=== PATIENT | male | born 1935 | race Caucasian/White ===

== ENCOUNTER → 2018-10-03 10:35 | Outpatient (CLI) | payer MEDICARE, BC ==
[2016-02-02 11:57] VITALS: BMI 25.1
[~2018-10-03 10:35] MED LIST: BAYER CHEWABLE81 MG PO; CARDIZEM30 MG PO; CEFTIN250 MG PO; COREG12.5 MG PO; COREG6.25 MG PO; CYMBALTA30 MG PO; GLUCOPHAGE500 MG PO; JANUVIA100 MG PO; LOW DOSE ASPIRI81 M1 PO; OCUVITE TABLET1 TA1 PO; UROXATRAL10 MG PO; XARELTO20 MG PO
== END | disposition home or self-care (01) ==
LOC: D.HCCARDIO 10:30
PROVIDERS: ATTEND Internal Medicine Cardiovascular Disease
DX: I10 Essential (primary) hypertension (principal)

== ENCOUNTER → 2018-10-16 10:15 | Outpatient (CLI) | payer MEDICARE, BC ==
[2016-02-02 11:57] VITALS: BMI 25.1
== END | disposition home or self-care (01) ==
LOC: D.HCCARDIO 10:15
PROVIDERS: ATTEND Internal Medicine Cardiovascular Disease
DX: I25.10 Atherosclerotic heart disease of native coronary artery without angina pectoris (principal)

== ENCOUNTER 2018-10-25 11:30 | Outpatient (CLI) | payer MEDICARE, BC ==
[~2018-10-25] VITALS: Ht 172.7 cm; Wt 74.1 kg
--- NOTE | ~2018-10-25 | HEMODYNAMI ---
PATIENT:KARO SPEAR JR MEDICAL RECORD: [id number] : 31 LOCATION:[facility] ADMISSION DATE: 10/25/18 Generatedon:10/25/201814:51 Patient name: KARO SPEAR Patient #: [id number] SSN: : 1935 Date of study: 10/25/2018 Page: Of Hemodynamic Procedure Report Patient Data Patient Demographics Procedure consent was obtained First Name: KARO Gender: Male Last Name: RAINER Suffix: [facility] Initial: Andrea : 1935 Patient #: [id number] Age: 83 year(s) Race: Additional ID: [id number] Contact details Address: [address] [place] [address] ROAD State: [place] City: [facility] Zip code: [address] Past Medical History Allergies: No known allergies Admission Admission Data Admission Date: 10/25/2018 Admission Time: 11:30 Admit Source: Other Height (in.): 68 BSA: 1.86 (m2) Height (cm.): 172.72 BMI: 24.48 (kg/m2) Weight (lbs.): 161 Weight (kg.): 73.03 Lab Results Lab Result Date: 10/25/2018 Lab Result Time: 12:10 Biochemistry Name Units Result Min Max BUN mg/dl 25 --(----)-* 7 18 Creatinine mg/dl 1.2 --(---*)-- 0.6 1.3 CBC Name Units Result Min Max Hematocrit % 38.6 *-(----)-- 42 54 Hemoglobin g/dl 12.2 *-(----)-- 13.5 17.5 Procedure Procedure Types Cath Procedure Diagnostic Procedure C [facility] w/Coronaries Procedure Description Procedure Date Procedure Date: 10/25/2018 Procedure Start Time: 14:32 Procedure End Time: 14:50 Procedure Staff Name Function Eze Mcleod MD Performing Physician Leslie Walker RT Monitor Red Hernadez RT Scrub David Lorigan RN Nurse Procedure Data Cath Procedure Fluoroscopy Diagnostic fluoroscopy Total fluoroscopy Time: 1.9 time: 1.9 min min Diagnostic fluoroscopy Total fluoroscopy dose: 452 dose: 452 mGy mGy Contrast Material Contrast Material Type Amount (ml) Isovue 300 78 Entry Location Entry Primary Successful Side Size Upsize Upsize Entry Closure Succes sful Closure Location (Fr) 1 (Fr) 2 (Fr) Remarks Device Remarks Femoral Right 5 Fr Exoseal artery Estimated blood loss: 5 ml Diagnostic catheters Device Type Used For End Catheter Placement MULTIPACK JL 4.0 5Fr Procedure catheter MULTIPACK 3DRC 5Fr Procedure catheter MULTIPACK Pigtail 5 Fr Procedure catheter Procedure Complications No complications Procedure Medications Medication Administration Route Dosage 0.9% NaCl I.V. 100 ml/hr Oxygen etCO2 Nasal cannula 2 l/min Heparin Flush Bag added to field 2 bags (1000units/500ml NS) Lidocaine 2% added to field 20 Versed I.V. 1 mg Fentanyl I.V. 50 mcg Versed I.V. 0.5 mg Fentanyl I.V. 25 mcg Hemodynamics Rest BSA: 1.86 (m2) HGB: 12.2 (g/dl) O2 Consumption: Estimated: 218.37 (ml/min) O2 Co nsumption indexed: Estimated:117.4 (ml/min/m) Heart Rate: 80 (bpm) Pressure Samples Time Site Value (mmHg) Purpose Heart Use Rate(bpm) 14:40 LV 137/2,17 Snapshot 78 14:40 AO 139/65(95) Pullback 77 14:40 LV 138/5,21 Pullback 77 Gradients Valve Time Site 1 Site 2 Mean SEP/DFP Peak To Heart Use (mmHg) (sec/min) Peak Rate (mmHg) (bpm) Aortic 14:40 LV AO 0 19 0 77 138/5,21 139/65(95) Calculations Valve P-P Mean Valve Index Valve Source Name Gradient Area Flow (cm2) Aortic 0 0 0 0 Snapshots Pre Cath Intra NCS Post Cath Vital Signs Time Heart Resp SPO2 etCO2 NIBP (mmHg) Rhythm Pain Sedation Rate (ipm) (%) (mmHg) Status Level (bpm) 14:15:24 79 22 98 36.9 155/93(133) NSR 0 (11) 10(A) , No pain 14:19:38 79 13 97 39.2 147/87(129) NSR 0 (11) 10(A) , No pain 14:23:50 74 12 96 0 142/86(122) NSR 0 (11) 10(A) , No pain 14:28:02 74 13 96 0 139/79(117) NSR 0 (11) 10(A) , No pain 14:32:14 77 12 96 36.2 139/78(111) NSR 0 (11) 10(A) , No pain 14:36:18 79 13 96 26.4 137/76(119) NSR 0 (11) 10(A) , No pain 14:40:28 77 11 96 0 131/77(111) NSR 0 (11) 9(A) , No pain 14:44:38 76 12 96 0 135/70(116) NSR 0 (11) 9(A) , No pain 14:48:47 69 12 96 0 137/81(110) NSR 0 (11) 9(A) , No pain Medications Time Medication Route Dose Verified Delivered Reason Notes Eff ectiveness by by 14:13:36 0.9% NaCl I.V. 100 David David Per ml/hr Jaimee Hermosillo physician RN RN 14:13:46 Oxygen etCO2 2 David David for low 02 Nasal l/min Lorigan Lorigan sats cannula RN RN 14:14:07 Heparin Flush added 2 David David used for Bag to bags Lorigan Lorigan procedure (1000units/500ml field RN RN NS) 14:14:26 Lidocaine 2% added 20ml David David for local to vial Lorigan Lorigan anesthetic field RN RN 14:32:52 Versed I.V. 1 mg David David for Lorigan Lorigan sedation RN RN 14:33:08 Fentanyl I.V. 50 David David for mcg Lorigan Lorigan sedation RN RN 14:38:53 Versed I.V. 0.5 David David for mg Lorigan Lorigan sedation RN RN 14:39:03 Fentanyl I.V. 25 David David for mcg Lorigan Lorigan sedation RN bait digger Log Time Note 13:56:28 Informed consent obtained and on chart 13:56:30 Admit Source: Other 13:56:41 Diagnostic Cath status Elective 13:56:42 David Hermosillo RN sent for patient. Start room use. 13:56:43 Time tracking: Regular hours (M-F 7:00 - 5:00) 13:56:46 Plan of Care:Hemodynamics will remain stable., Cardiac rhythm will remain stable., Comfort level will be maintained., Respiratory function will remain adequate., Patient/ family verbilizes understanding of procedure., Procedure tolerated without complication., Recovers from procedure without complications.. 13:58:37 H&P Date Dictated: 10/10/2018 Within 30 days and on chart., H&P Addendum completed by physician on day of procedure. (MUST COMPLETE FOR ALL OUTPATIENTS). 13:59:51 Lab Result : BUN 25 mg/dl 13:59:51 Lab Result : Hemoglobin 12.2 g/dl 13:59:51 Lab Result : Creatinine 1.2 mg/dl 13:59:51 Lab Result : Hematocrit 38.6 % 13:59:54 Lab results completed and on chart. 14:00:52 Patient received from Pre/Post Procedure Room to [facility] 2 Alert and oriented. Tansferred to table in Supine position. 14:00:53 Warm blankets applied, and ricco hugger turned on for patient comfort. 14:00:54 Correct patient and procedure confirmed by team. 14:00:56 ECG and BP/O2 sat monitors applied to patient. 14:13:36 0.9% NaCl 100 ml/hr I.V. was administered by David Hermosillo RN; Per physician; 14:13:46 Oxygen 2 l/min etCO2 Nasal cannula was administered by David Hermosillo RN; for low 02 sats; 14:14:07 Heparin Flush Bag (1000units/500ml NS) 2 bags added to field was administered by David Hermosillo RN; used for procedure; 14:14:18 Vital chart was started 14:14:19 Baseline sample Acquired. 14:14:22 Rhythm: sinus rhythm 14:14:23 Full Disclosure recording started 14:14:24 Pre-procedure instructions explained to patient. 14:14:24 Pre-op teaching completed and patient verbalized understanding. 14:14:25 Family in patients room. 14:14:26 Lidocaine 2% 20ml vial added to field was administered by David Hermosillo RN; for local anesthetic; 14:14:26 Patient NPO since Midnight. 14:14:33 Patient allergic to No known allergies 14:15:06 Is patient on blood thinner?No 14:15:07 Patient diabetic? Yes. 14:15:08 If diabetic: On Metformin? Yes 14:15:12 If on Metformin: Last Dose? 10/24/2018 14:15:17 Previous problem with sedation/anesthesia? No ? 14:15:18 Snore? Yes 14:15:32 Sleep apnea? No 14:15:33 Deviated septum? No 14:15:36 Opens mouth fully? Yes 14:15:36 Sticks out tongue? Yes 14:15:38 Airway obstruction? No ? 14:15:40 Dentures? No ? 14:15:43 Pre procedure: right dorsailis pedis pulse 2+ Normal; easily identifiable; not easily obliterated 14:15:50 Patient pain scale 0/10 ?. 14:16:54 IV patent on arrival in left forearm with 0.9% NaCl at O. 14:16:57 Alarms reviewed by R. N. 14:16:58 Sharps counted by scrub and verified by R.N. 14:17:02 Use device set Femoral Dx 14:17:03 ACIST Syringe (81609) opened to sterile field. 14:17:03 Bag Decanter (2002S) opened to sterile field. 14:17:04 ACIST Hand Control (11767) opened to sterile field. 14:17:05 ACIST Manifold (78783) opened to sterile field. 14:17:06 Tegaderm 4 x 4 (1626W) opened to sterile field. 14:17:07 Medline Cath Pack ([id number]) opened to sterile field. 14:17:07 DIAGNOSTIC WIRE .035 260cm J wire (797257) opened to sterile field. 14:17:08 DIAGNOSTIC Multipack 5Fr catheter set (QS0118) opened to sterile field. 14:17:09 SHEATH 5FR [place] (YFC725) opened to sterile field. 14:18:08 Patient Height : 68 inches 14:18:11 Patient Weight : 161 lbs 14:27:41 --------ALL STOP TIME OUT------ 14:27:42 Final Timeout: patient, procedure, and site verified with staff and physician. All members of the team are in agreement. 14:27:44 Right groin site verified by team. 14:27:58 Fire Safety Assessment: A--An alcohol-based skin anteseptic being used preoperatively., C--Open oxygen or nitrous oxide is being used., D--An ESU, laser, or fiber-optic light is being used. 14:28:02 Physical assessment completed. ASA score P 2 - A patient with mild systemic disease as per Eze Mcleod MD. 14:28:06 Sedation plan: IV Moderate Sedation Medication:Versed, Fentanyl 14:32:15 Procedure started. 14:32:23 Local anesthetic to right femoral artery with Lidocaine 2% by Eze Mcleod MD.INITIAL ACCESS ONLY 14:32:52 Versed 1 mg I.V. was administered by David Hermosillo RN; for sedation; 14:33:08 Fentanyl 50 mcg I.V. was administered by David Hermosillo RN; for sedation; 14:33:24 A 5 Fr sheath was inserted into the Right Femoral artery 14:34:00 A MULTIPACK JL 4.0 5Fr catheter was advanced over the wire and used for Procedure. 14:35:22 LCA angiography performed. 14:35:25 Catheter exchanged over wire. 14:35:58 A MULTIPACK 3DRC 5Fr catheter was advanced over the wire and used for Procedure. 14:37:43 RCA angiography performed. 14:37:45 Catheter removed. 14:38:49 A MULTIPACK Pigtail 5 Fr catheter was advanced over the wire and used for Procedure. 14:38:53 Versed 0.5 mg I.V. was administered by David Hermosillo RN; for sedation; 14:39:03 Fentanyl 25 mcg I.V. was administered by David Hermosillo RN; for sedation; 14:39:27 LV gram done using CHRISTENSEN 14:39:30 Injector settings: Ml/sec: 10, Volume: 20, 14:40:02 LV hemodynamics recorded. 14:40:17 EF : 25 % 14:40:30 Catheter removed. 14:43:38 EXOSEAL 5Fr (EX500) opened to sterile field. 14:45:06 Sheath removed intact; hemostasis achieved with Exoseal to the Right Femoral artery. 14:45:31 Procedure ended.(Physican Out) 14:46:57 Fluoroscopy time 01.90 minutes. 14:47:02 Flurop Dose total: 452 14:47:02 Fluoroscopy dose: 452 mGy 14:47:11 Contrast amount:Isovue 300 78ml. 14:47:13 Sharps counted by scrub and verified by R.N. 14:47:15 Post-op/insertion site Right Femoral artery dressed using a 4 x 4 and Tegaderm. 14:47:18 Post-procedure physical assessment completed. ASA score P 2 - A patient with mild systemic disease as per Eze Mcleod MD. 14:47:22 Post procedure rhythm: sinus rhythm 14:47:28 Estimated blood loss: 5 ml 14:47:29 Post procedure instruction explained to patient.Patient verbalizes understanding. 14:47:30 Patient needs reinforcement of post procedure teaching. 14:49:33 Procedure and supply charges have been captured, reviewed, submitted and are correct. 14:49:36 Procedure Complication : No complications 14:49:38 Vital chart was stopped 14:49:38 See physician's report for complete and final results. 14:49:48 Report given to Pre/Post Procedure Room. 14:49:51 Patient transfered to Pre/Post Procedure Room with Bed. 14:50:37 Procedure ended. 14:50:37 Full Disclosure recording stopped 14:50:41 End room use (Document Last) Device Usage Item Name Manufacture Quantity Catalog Hospital Part Current Minimal L ot# / Number Charge Number Stock Stock Serial# Code ACIST Acist 1 66113 693948 535800 435811 20 Syringe Medical (90759) Systems Inc Bag Microtek 1 2001S 388215 96365 815613 5 Decanter Medical Inc. () ACIST Hand Acist 1 45169 626832 317588 295771 5 Control Medical (68449) Systems Inc ACIST Acist 1 80658 133276 861694 954212 5 Manifold Medical (07028) Systems Inc Tegaderm 4 3M 1 1626W 013074 240802 624667 5 x 4 (1626W) Medline Medline 1 [id number] 876106 42796 845188 5 Cath Pack ([id number]) DIAGNOSTIC [facility] [place] 1 849384 868189 556715 118127 30 WIRE .035 260cm J wire (065659) DIAGNOSTIC Cardinal 1 QU8237 935302 53343 074528 30 Multipack Health 5Fr catheter set (JB8673) SHEATH 5FR Terumo 1 VXV785 576283 486239 991490 5 [place] (SBE724) MULTIPACK Cardinal 1 846530 5 JL 4.0 5Fr Health catheter MULTIPACK Cardinal 1 066817 5 3DRC 5Fr Health catheter MULTIPACK Cardinal 1 184974 5 Pigtail 5 Health Fr catheter EXOSEAL 5Fr Cardinal 1 EX500 317800 398059 869027 10 (EX500) Health Signature Audit [place] Stage Time Signature Unsigned Intra-Procedure 10/25/2018 Leslie Walker 2:51:14 PM RT(R) Signatures Monitor : Leslie Walker Signature : RT Date : Time : [address] [address]
[2018-10-25] MEDS ORDERED: PROSCAR5 MG PO (11:51)
[2018-10-25 12:09] VITALS: BP 150/86; Ht 172.7 cm; Wt 74.1 kg
[2018-10-25 12:25] LABS: BASOPHILS 0.4 % (0-2); EOSINOPHILS 5.4 % (0-7); HEMATOCRIT 38.6 % (42.0-54.0); HEMOGLOBIN 12.2 g/dL (13.5-17.5); IMMATURE GRANULOCYTES 0.3 % (0-5); LYMPHOCYTES 23.5 % (15-50); MCH 28.7 pg (26.0-34.0); MCHC 31.6 g/dL (31.0-37.0); MCV 90.8 fL (80.0-100.0); MEAN PLATELET VOLUME 10.7 fL (7.4-10.4); MONOCYTES 11.6 % (2-11); NEUTROPHILS 58.8 % (40-80); PLATELET COUNT 322 10x3/uL (130-400); RBC 4.25 10x6/uL (4.20-6.10); RDW 14.8 % (11.5-14.5); WBC 7.9 10x3/uL (4.8-10.8)
[2018-10-25 12:37] LABS: ANION GAP 12.3 mmol/L (8-16); CALCIUM 8.4 mg/dL (8.5-10.1); CARBON DIOXIDE 29.7 mmol/L (21.0-32.0); CREATININE - SERUM 1.2 mg/dL (0.6-1.3)
--- NOTE | 2018-10-25 15:18 | NUR ---
RIGHT GROIN DRESSING C/D/I. NO S/S OF HEMATOMA NOTED. PT DENIES PAIN. VSS. RIGHT PEDAL PULSE PALPABLE. FAMILY AT BEDSIDE.
--- NOTE | 2018-10-25 15:50 | NUR ---
RIGHT GROIN DRESSING C/D/I. VSS. NO S/S OF HEMATOMA NOTED. FAMILY AT BEDSIDE.
--- NOTE | 2018-10-25 15:55 | NUR ---
DR. BAGLEY ROUNDED AND SPOKE WITH PT AND PT'S FAMILY.
--- NOTE | 2018-10-25 16:00 | NUR ---
HEAD OF BED INC TO 30 DEGREES. TOLERATED WELL. SET UP WITH SANDWICH TRAY AND DRINK. DENIES NAUSEA.
--- NOTE | 2018-10-25 16:24 | NUR ---
PT VOIDED APPROX 450CC OF CLEAR YELLOW URINE. LEFT FA PIV D/C'D WITH CATH TIP INTACT. PT TOLERATED WELL. DISCUSSED DISCHARGE INSTRUCTIONS WITH PT AND PT'S FAMILY. THEY VOICED UNDERSTANDING. PT INSTRUCTED TO GET DRESSED. PT'S AT BEDSIDE FOR ASSISTANCE. RIGHT GROIN DRESSING SOFT TO TOUCH. NO S/S OF HEMATOMA NOTED.
--- NOTE | 2018-10-25 16:40 | NUR ---
PT DRESSED. RIGHT GROIN DRESSING C/D/I. PT TAKEN OUT TO VEHICLE BY WHEELCHAIR. NO S/S OF DISTRESS NOTED. ALL BELONGINGS AND PAPERWORK IN HAND.
== END 2018-10-25 16:40 | disposition home or self-care (01) ==
LOC: D.CATH 11:30
PROVIDERS: ATTEND Internal Medicine Cardiovascular Disease
DX: I25.119 Atherosclerotic heart disease of native coronary artery with unspecified angina pectoris (principal); R94.39 Abnormal result of other cardiovascular function study; Z01.812 Encounter for preprocedural laboratory examination

== ENCOUNTER → 2018-11-27 17:00 | Outpatient (CLI) | payer MEDICARE, BC ==
[2018-10-25 12:09] VITALS: BMI 24.8
[~2018-11-27 17:00] MED LIST changes: +PROSCAR5 MG PO
[2018-11-27 20:29] LABS: CALC OSMOLALITY 286 mosm/kg (275-300); CARBON DIOXIDE 30.3 mmol/L (21.0-32.0); CHLORIDE - SERUM 104 mmol/L (98-107); CREATININE - SERUM 0.9 mg/dL (0.6-1.3); GLUCOSE 132 mg/dL (74-106); POTASSIUM - SERUM 4.8 mmol/L (3.5-5.1); SODIUM 142 mmol/L (136-145); UREA NITROGEN 17 mg/dL (7-18); eGFR NON AFRICAN AMERICAN 85 mL/min (90-120)
== END | disposition home or self-care (01) ==
LOC: D.LABREF 17:00
PROVIDERS: ATTEND Internal Medicine Cardiovascular Disease
DX: I10 Essential (primary) hypertension (principal)

== ENCOUNTER 2019-01-26 10:50 | Emergency (ER) | payer MEDICARE, BC ==
[2019-01-26 11:00] VITALS: BMI 24.3
[2019-01-26] MEDS ORDERED: PRAVACHOL20 MG PO (11:02)
[2019-01-26] MEDS ORDERED: ENTRESTO 24 MG1 EACH PO (11:02)
[2019-01-26 11:20] LABS: BASOPHILS 0.3 % (0-2); HEMATOCRIT 33.2 % (42.0-54.0); HEMOGLOBIN 10.8 g/dL (13.5-17.5); IMMATURE GRANULOCYTES 0.1 % (0-5); LYMPHOCYTES 11.8 % (15-50); MCH 29.9 pg (26.0-34.0); MCHC 32.5 g/dL (31.0-37.0); MEAN PLATELET VOLUME 10.6 fL (7.4-10.4); NEUTROPHILS 78.8 % (40-80); PLATELET COUNT 319 10x3/uL (130-400); RBC 3.61 10x6/uL (4.20-6.10); RDW 16.4 % (11.5-14.5); WBC 7.3 10x3/uL (4.8-10.8)
[2019-01-26 11:31] LABS: APTT 21.8 SECONDS (22.8-39.4); INR 1.33 (0.85-1.17); PROTIME 15.9 SECONDS (11.6-15.0)
[2019-01-26 11:36] LABS: ALBUMIN 3.1 g/dL (3.4-5.0); ALKALINE PHOSPHATASE 138 U/L (46-116); ALT (SGPT) 113 U/L (10-68); BILIRUBIN - TOTAL 0.74 mg/dL (0.2-1.3); CALC OSMOLALITY 289 mosm/kg (275-300); CALCIUM 7.9 mg/dL (8.5-10.1); CARBON DIOXIDE 21.7 mmol/L (21.0-32.0); CHLORIDE - SERUM 105 mmol/L (98-107); CREATININE - SERUM 1.3 mg/dL (0.6-1.3); GLUCOSE 202 mg/dL (74-106); PROTEIN - SERUM 6.5 g/dL (6.4-8.2); SODIUM 139 mmol/L (136-145); UREA NITROGEN 29 mg/dL (7-18); eGFR NON AFRICAN AMERICAN 56 mL/min (90-120)
[2019-01-26 12:02] LABS: CKMB 1.7 U/L (0.0-3.6); CREATINE KINASE 110 UL (21-232); MAGNESIUM - SERUM 1.5 mg/dL (1.8-2.4); PRO BNP 21525 pg/mL (0-450); TROPONIN-I 0.026 ng/mL (0.000-0.060)
[2019-01-26] MEDS ORDERED: LASIX40 MG PO (14:35)
[2019-01-26] MEDS ORDERED: K-DUR20 MEQ PO (14:35)
[2019-01-26 15:45] VITALS: BP 154/70
== END 2019-01-26 15:46 | disposition home or self-care (01) ==
LOC: D.ER 10:50
PROVIDERS: Emergency Medicine
DX: R06.00 Dyspnea, unspecified (principal); R79.89 Other specified abnormal findings of blood chemistry; I10 Essential (primary) hypertension; E11.9 Type 2 diabetes mellitus without complications

== ENCOUNTER 2019-02-18 12:52 | Inpatient (IN) | payer MEDICARE, BC ==
[~2019-02-18] VITALS: Ht 172.7 cm; Wt 71.7 kg
[~2019-02-18 12:52] MED LIST changes: +ENTRESTO 24 MG1 EACH PO; +K-DUR20 MEQ PO; +LASIX40 MG PO; +PRAVACHOL20 MG PO
[2019-02-18 14:21] LABS: BASOPHILS 0.1 % (0-2); EOSINOPHILS 0 % (0-7); HEMATOCRIT 37.3 % (42.0-54.0); HEMOGLOBIN 12.4 g/dL (13.5-17.5); IMMATURE GRANULOCYTES 0.2 % (0-5); LYMPHOCYTES 9.6 % (15-50); MCH 30.2 pg (26.0-34.0); MCHC 33.2 g/dL (31.0-37.0); MCV 90.8 fL (80.0-100.0); MONOCYTES 8.4 % (2-11); NEUTROPHILS 81.7 % (40-80); PLATELET COUNT 320 10x3/uL (130-400); RBC 4.11 10x6/uL (4.20-6.10); RDW 16.6 % (11.5-14.5); WBC 10.2 10x3/uL (4.8-10.8)
--- NOTE | 2019-02-18 14:40 | NUR ---
URINE SENT TO LAB.
[2019-02-18 14:50] LABS: APPEARANCE CLEAR (CLEAR); BILIRUBIN NEGATIVE (NEGATIVE); COLOR YELLOW (YELLOW); GLUCOSE NEGATIVE (NEGATIVE); KETONE NEGATIVE (NEGATIVE); NITRITE NEGATIVE (NEGATIVE); PROTEIN TRACE mg/dL (NEGATIVE); SPECIFIC GRAVITY 1.015 (1.005-1.020); UROBILINOGEN NORMAL (NORMAL)
[2019-02-18 14:50] LABS: ALBUMIN 3.1 g/dL (3.4-5.0); ANION GAP 19.1 mmol/L (8-16); BILIRUBIN - TOTAL 1.26 mg/dL (0.2-1.3); CALCIUM 8.5 mg/dL (8.5-10.1); CARBON DIOXIDE 21.7 mmol/L (21.0-32.0); POTASSIUM - SERUM 5.8 mmol/L (3.5-5.1)
[2019-02-18 14:59] LABS: T4 THYROXINE 4.6 ug/dL (4.7-13.3); THYROID STIMULATING HORMONE 3.34 uIU/mL (0.36-3.74)
--- NOTE | 2019-02-18 17:08 | NUR ---
RECIEVED REPORT FROM GERMAIN RODRÍGUEZ IN THE ER.
[2019-02-18] MEDS ORDERED: METFORMIN HCL500 M1 PO (17:52)
[2019-02-18] MEDS ORDERED: GLUCOTROL 5 MG T5 MG PO (17:55)
[2019-02-18 17:56] VITALS: BP 116/79; BMI 24.0
[2019-02-18 20:00] VITALS: BP 103/61
--- NOTE | 2019-02-18 20:29 | NUR ---
EVENING ROUNDS COMPLETED. REPORT RECEIVED. PT SITTING UP IN BED WITH EYES OPEN, RR EVEN AND UNLABORED. NO S/S OF DISTRESS NOTED. BED IN LOW POSITION. LFA INFUSING NS ORDERED. 87 SINUS ON TELEMETRY. INTRODUCED SELF TO PT. PT DENIES FURTHER NEEDS AT THIS TIME. CALL LIGHT IN REACH. WILL CTM.
[2019-02-19 00:18] VITALS: BP 112/75
--- NOTE | 2019-02-19 01:05 | NUR ---
PT LYING ON RIGHT SIDE IN BED WITH EYES CLOSED, RR EVEN AND UNLABORED. 91 SINUS ON TELEMETRY. BED IN LOW POSITION. CALL LIGHT IN REACH. WILL CTM.
--- NOTE | 2019-02-19 03:16 | NUR ---
SCD'S APPLIED TO PT BILATERAL LOWER EXTREMITIES. PROVIDED PT EDUCATION ON PURPOSE AND APPLICATION OF SCD'S.
[2019-02-19 04:00] VITALS: BP 129/84
--- NOTE | 2019-02-19 04:35 | NUR ---
I have reviewed this patient and I concur with the Shift Assessment completed by the Licensed Practical Nurse today this shift.
[2019-02-19 05:56] LABS: BASOPHILS 0.1 % (0-2); EOSINOPHILS 0.1 % (0-7); HEMATOCRIT 36.6 % (42.0-54.0); IMMATURE GRANULOCYTES 0.3 % (0-5); LYMPHOCYTES 11.1 % (15-50); MCH 29.6 pg (26.0-34.0); MCHC 32.8 g/dL (31.0-37.0); MCV 90.4 fL (80.0-100.0); NEUTROPHILS 80.4 % (40-80); PLATELET COUNT 345 10x3/uL (130-400); RBC 4.05 10x6/uL (4.20-6.10); RDW 16.3 % (11.5-14.5); WBC 9.7 10x3/uL (4.8-10.8)
[2019-02-19 06:12] LABS: ANION GAP 20.5 mmol/L (8-16); CALCIUM 8.3 mg/dL (8.5-10.1); CARBON DIOXIDE 18.7 mmol/L (21.0-32.0); PHOSPHOROUS 5.1 mg/dL (2.5-4.9); POTASSIUM - SERUM 5.2 mmol/L (3.5-5.1)
--- NOTE | 2019-02-19 07:42 | NUR ---
PT RESTING IN BED. NO SIGNS OF DISTRESS. IV TO LEFT FORARM PATENT NO REDNESS OR TENDERNESS. ON TELEMETRY 95 SR WITH BBB. DENIES ANY FUTHER NEED AT THIS TIME. CALL LIGHT IN REACH. BED LOW POSITION. AT BEDSIDE.
[2019-02-19 08:28] VITALS: BP 125/84
--- NOTE | 2019-02-19 08:37 | HP ---
PATIENT: KARO SPEAR JR MEDICAL RECORD: [id number] ACCOUNT: [id number] LOCATION:[address] : [birth year] ADMISSION DATE: 02/18/19 PCP: ANDREW HARDEN MD HISTORY AND PHYSICAL EXAMINATION DATE OF ADMISSION: 02/18/2019. CHIEF COMPLAINT: Increased weakness and decreased appetite. HISTORY OF PRESENT ILLNESS: This is an 83-year-old white male who is followed by Dr. Harden. He has been having the above symptoms for the last few weeks to maybe a couple of months. He had an angiogram done on 10/25/2018 that showed moderate coronary artery disease that really had not changed much from previous angiogram. The ejection fraction was found to be low at 20% to 25%. The patient's states that he was started on Entresto, she thinks in November of this year. The patient denies chest pain, shortness of breath, nausea, vomiting, diarrhea, fever, or chills. He was in the Emergency Department in early January, and he was reportedly started on Lasix or increased Lasix then. Here in the Emergency Room today, his urinalysis was normal. LABORATORY DATA: His CBC showed mild anemia with hemoglobin 12.4. Basic metabolic panel showed a potassium level of 5.8, BUN of 54, creatinine of 2.0, alkaline phosphatase was high at 286 (the patient had a basic metabolic panel on 10/27/[address] Harden's office showed a potassium of 4.2, BUN of 20, and creatinine 1.19. Another basic metabolic panel done by Dr. Harden on 02/06/2019 showed a potassium level of 3.9, BUN of 40, and a creatinine of 1.50. His alkaline phosphatase then was 269, ALT was elevated at 169, and AST was mildly elevated at 52. The patient was admitted. PAST MEDICAL HISTORY: He has chronic congestive heart failure, macrocytic anemia, coronary artery disease, paroxysmal atrial fibrillation, BPH, diabetes, hyperlipidemia, hypertension, hypothyroidism, reflux, sleep apnea, and arthritis. PAST SURGICAL HISTORY: He has had coronary stents. ALLERGIES: REPORTEDLY TO SULFA AND ELISE INHIBITORS. HOME MEDICATIONS: He has been on Lasix 40 mg a day, potassium 20 mEq a day started 3-4 weeks ago, he has been on Carvedilol 12.5 mg twice a day, Megace 1 teaspoon twice a day, Januvia 100 mg once a day, metformin 500 mg twice a day, glipizide 5 mg 1/2 once a day. He gets regular B12 injections. He was started on Entresto 24-26 twice a day, pravastatin 20 mg a day, finasteride 5 mg a day, and duloxetine 30 mg a day. HABITS: Smokes cigars. No alcohol or drugs. SOCIAL HISTORY: He is . He is retired. FAMILY HISTORY: Noncontributory. REVIEW OF SYSTEMS: GENERAL: thinks he has lost a few pounds over the last several weeks to months. HEENT: No particular sinus or allergy problems. HISTORY AND PHYSICAL [id number] KARO SPEAR JR RESPIRATORY: No known diagnosis of COPD or emphysema. CARDIAC: See above history, followed by Dr. Mcleod. GASTROINTESTINAL: No significant diarrhea, constipation, or heartburn. GENITOURINARY: He has a history of BPH. MUSCULOSKELETAL: He has arthritic aches and pains. NEUROLOGIC: No seizures or migraine headaches. PSYCHIATRIC: He has had some depression. PHYSICAL EXAMINATION: VITAL SIGNS: Temperature 97.7, pulse 93, respirations 18, blood pressure 116/79, and O2 sat 95%. GENERAL: He is awake and alert. He does not appear in distress, and is lying on his right side. SKIN: Warm and dry. HEENT: Grossly within normal limits. NECK: Supple. No JVD or bruit. HEART: Regular rate and rhythm without murmur. LUNGS: Fairly clear. ABDOMEN: Soft, flat, nontender. EXTREMITIES: He has 2+ pitting edema in the lower extremities bilaterally. LABORATORY DATA: Urinalysis is normal. CBC with white count of 10,200, hemoglobin 12.4, and hematocrit 37.3. Sodium 132, potassium 5.8, chloride 97, CO2 21.7, BUN 54, creatinine 2.0, glucose 212, calcium 8.5, and total bilirubin 1.26. AST normal at 29, ALT 46, alkaline phosphatase high at 286, albumin 3.1. TSH 3.34. T4 level was 4.6. ASSESSMENT: 1. Generalized weakness, loss of appetite, and acute renal failure. 2. History of CHF with ejection fraction of 20% to 25%. 3. Diabetes. 4. Heart disease. 5. Hyperkalemia. PLAN: We will order a chest x-ray. We will check a proBNP. He was given a 500-mL normal saline bolus in the ER. He was given calcium gluconate, insulin, and D50 to try to get his potassium down. We will consult Dr. Mcleod in s morning. We will hold his Lasix and obviously the potassium. Hold metformin and Januvia as his kidney function is too high for him. His Entresto could be causing some of these side effects, including renal impairment and hyperkalemia. Other tests or procedures as warranted. TRANSINT:[id number] Voice Confirmation ID: [id number] DOCUMENT ID: [id number] ALBERTO OROZCO MD at 0837 CC: [id number] DICTATION DATE: 02/18/192100 GLASS FINISHER: 02/18/192217 ADM IN [facility] [address] [place] [address]
[2019-02-19 12:58] VITALS: BP 120/87
--- NOTE | 2019-02-19 13:22 | NUR ---
I have reviewed this patient and I concur with the Shift Assessment completed by the Licensed Practical Nurse today this shift.
[2019-02-19 13:35] VITALS: Ht 172.7 cm; Wt 71.7 kg
--- NOTE | 2019-02-19 15:19 | MORECARE ---
CASE MANAGEMENT DISCHARGE SUMMARY PATIENT: MODESTO SPEAR UNIT: [id number] ADM DATE: 02/18/19 AGE: 83 : 33 SEX: M ROOM/BED: D.2130 AUTHOR: LETICIA,DOC PHYSICIAN: REFERRING PHYSICIAN: ALBERTO OROZCO MD DATE OF SERVICE: 02/19/19 Discharge Plan Patient Name: MODESTO SPEAR Facility: [facility]:[place] : 1935 Planned Disposition: Home Anticipated Discharge Date: Discharge Date: Expected LOS: Initial Reviewer: [email or web address] Initial Review Date: 02/19/2019 Generated: 02/19/19 4:19 pm Comments DCP- Discharge Planning Updated by [email or web address]: Modetso Monk on 02/19/19 2:[address] Patient Name: MODESTO SPEAR Admission Status: ER Accout number: [id number] Admission Date: 02-18-2019 : 1935 Admission Diagnosis: Attending: ALBERTO OROZCO Current LOS: 1 Anticipated DC Date: Planned Disposition: Home Primary Insurance: MEDICARE A & B Discharge Planning Comments: CM RECEIVED ORDER FOR REHAB OR HOME HEALTH. CM MET WITH PT IN ROOM TO DISCUSS DISCHARGE PLANNING AND NEEDS. PT REPORTS LIVING AT HOME INDEPENDENTLY WITH HIS . PT HAS GLUCOMETER AND GETS SUPPLIES FROM [employer]; PT HAS NO MEDICAL EQUIPMENT PROVIDER PREFERENCE AND NO OUTSIDE SERVICES ASSISTING IN THE HOME. CM DISCUSSED AVAILABILITY OF HOME HEALTH, REHAB SERVICES AND MEDICAL EQUIPMENT. PT DENIES DISCHARGE NEEDS, AND THINKS HE WILL BE GOING HOME AT DISCHARGE. PT REPORTS HIS WILL PICK HIM UP FOR DISCHARGE HOME. IMPORTANT MESSAGE FROM MEDICARE PROVIDED AND EXPLAINED. CM SPOKE TO BEDSIDE NURSE AND OBTAINED ORDER FOR PHYSICAL THERAPY EVALUATION. PT STATES PLAN TO GO HOME AND DENIES CURRENT DISCHARGE NEEDS, BUT PLANS TO SPEAK TO HIS TODAYREGARDING DISCHARGE NEEDS. CM WAITING PT TO DISCUSS DISCHARGE PLAN WITH AND INFORM PULLING UNIT OPERATOR. CM LEFT CM CONTACT INFORMATION WITH PT IN ROOM. Supervisor Of Operations: Modesto Monk DCPIA - Discharge Planning Initial Assessment Updated by [email or web address]: Modesto Monk on 02/19/19 3:13 pm * Is the patient Alert and Oriented? Yes * How many steps to enter\exit or inside your home? 3-O / 3-I * PCP DR. [place] CITIZEN * [facility] * Preadmission Environment Home with Family * ADLs Independent * Equipment Glucometer * Other Equipment NO MEDICAL EQUIPMENT PROVIDER PREFERENCE * List name and contact numbers for known caregivers / representatives who currently or will assist patient after discharge: STEFANIE SPEAR, SPOUSE, * Verbal permission to speak to the caregivers and representatives has been obtained from the patient. N/A * Community resources currently utilized None * Please name any agencies selected above. NONE * Additional services required to return to the preadmission environment? No * Can the patient safely return to the preadmission environment? Yes * Has this patient been hospitalized within the prior 30 days at any hospital? No Coverage Notice Reviewer: [email or web address] Nancy Monk Notice Issued Date-Time: 02/19/2019 15:00 Notice Type: IM Discharge Notice Notice Delivered To: Patient Relationship to Patient: Hat Former Name: Delivery Method: HAND - Hand Delivered Lynn Days: Prior Verbal Notification: Recipient Understood Notice: Yes Recipient Signature: Yes Med Rec Note Co-signed by Attending: Coverage Notice Comment: Patient Name: MODESTO SPEAR Page [id number] at 1519 All edits/amendments must be made on the electronic document DICTATION DATE: 02/19/191518 LITHOGRAPHIC PHOTOGRAPHER APPRENTICE: ENRIQUE 02/19/191518 RPT#: [id number] DC DATE: STATUS: ADM IN [facility] [address] [place] [address] END OF REPORT
[2019-02-19 17:28] VITALS: BP 136/96
--- NOTE | 2019-02-19 17:31 | HP ---
PATIENT: KARO SPEAR JR MEDICAL RECORD: [id number] ACCOUNT: [id number] LOCATION:[address] : [birth year] ADMISSION DATE: 02/18/19 PCP: ANDREW KNOWLES MD HISTORY AND PHYSICAL EXAMINATION REASON FOR ADMISSION: Cachexia and fatigue. HISTORY OF PRESENT ILLNESS: The patient is an 83-year-old male with history of type 2 diabetes mellitus, ischemic cardiomyopathy, and coronary artery disease. Cardiac catheterization in October of this year showed stable disease. His ejection fraction, however, dropped to 25% to 30%. He was placed on Entresto, and he has felt more fatigued since he has had poor appetite. He has had outpatient workup in the clinic 2 weeks ago, was found to be hypokalemia with potassium of 3.4 and was started on oral potassium. He was started on Lasix because of pleural effusion, mild CHF symptoms earlier in the ER a few months ago. His said he just is weak and tired only. He denies depression. He denies shortness of breath or chest pain. He also has history of paroxysmal atrial fibrillation, remains in sinus rhythm currently. His cath on October 25 of this year showed heavily calcified LAD with proximal stents that were patent, moderate disease involving the bifurcation of LAD and diagonal, unchanged from prior. Circumflex showed 80% stenosis at the origin. RCA was large in caliber, PDA was 67% stenosis. EF was 20% to 25%. PAST MEDICAL HISTORY: AODM, BPH, paroxysmal atrial fibrillation, essential hypertension, ischemic congestive cardiomyopathy, hyperlipidemia, osteoarthritis, remote history of pneumonia, obstructive sleep apnea, pernicious anemia, CAD, BPH, diabetic neuropathy, history of herpes zoster, hypothyroidism, and mitral valve regurgitation. PAST SURGICAL HISTORY: Cardiac catheterization as mentioned times 2 with PTCA. His stent was placed 11/14/2014 LAD. ALLERGIES: None mentioned. HOME MEDICATIONS: Entresto 24 mg/26 mg 1 b.i.d., Metformin ER 500 mg b.i.d., potassium ER 20 mEq a day, furosemide 40 a day, glipizide 5 mg 1/2 tab daily, finasteride 5 mg a day, Coreg 12.5 mg b.i.d., Januvia 100 mg a day, duloxetine 30 mg SR daily, Nasonex nasal spray daily, pravastatin 20 mg at bedtime, and aspirin 81 mg daily. FAMILY HISTORY: Remote smoker, nondrinker. He is . REVIEW OF SYSTEMS: GENERAL: He had a 10-pound weight loss over the last 2 years, 5 pounds in the last 6 months, poor appetite. No fever. HEENT: No recent new visual change, sinus congestion, or sore throat. RESPIRATORY: Mild exertional dyspnea. No cough and no hemoptysis. CARDIAC: No exertional chest pain or claudication. He has had mild peripheral edema. He denies PND. Denies chest pain. GASTROINTESTINAL: She has no recent nausea. No change in stools or blood per rectum. Recent gallbladder ultrasound showed distended gallbladder without stones, elevated liver functions. No history of hepatitis. GENITOURINARY: Has nocturia 2-3 times nightly with slow voiding stream. ENDOCRINE: Denies polyuria, polydipsia, heat or cold intolerance. NEUROLOGIC: No history of stroke, TIA, or vascular headaches. HISTORY AND PHYSICAL [id number] KARO SPEAR JR INTEGUMENT: No rash or itching. PSYCHIATRIC: Denies depressed mood, although I suspect he is somewhat depressed due to his current cardiac issues. PHYSICAL EXAMINATION: VITAL SIGNS: Pulse 86 and regular, respirations are 18, blood pressure 103/61 with a sat of 95% on room air. GENERAL: The patient is alert and oriented, but appears weak. His eyes are clear. Oropharynx shows dry mucous membranes. NECK: Supple. CHEST: Decreased breath sounds at right base. HEART: Regular rate without murmur. ABDOMEN: Soft, nontender. GENITOURINARY: Unremarkable. EXTREMITIES: He has 2+ pretibial edema of the knees bilaterally. No cyanosis. NEUROLOGICAL: Oriented to person, place, and time. Cranial nerves intact. Gait is normal. Memory appears intact. ADMISSION LABORATORY DATA: Shows H and H of 12.4 and 37, reflecting his chronic anemia from B12 deficiency. Potassium was 5.8 on admission, sodium 132, CO2 of 21.7, BUN 34, creatinine 2.0, and alkaline phosphatase of 285. ProBNP of 32,683. Chest x-ray is pending. EKG reveals incomplete left bundle branch block, T-wave inversion laterally and old prolonged QT. ASSESSMENT: 1. Prerenal azotemia. 2. Hyperkalemia from medications and poor oral intake. 3. Ischemic cardiomyopathy with congestive heart failure. 4. Diabetes mellitus. 5. Cardiac cachexia. 6. Pernicious anemia. 7. Hypertension. 8. Hyperlipidemia. 9. Paroxysmal atrial fibrillation. 10. Coronary artery disease. 11. GERD. 12. Dyslipidemia. 13. Diabetic neuropathy. 14. Hypothyroidism. PLAN: The patient admitted, was treated in the ER emergently for hyperkalemia and placed on oracle database analyst. He was restarted on Megace and tolerating that in the office. His states that she cannot get him to eat and he is extremely weak. I discussed in depth how week his heart is currently most likely has cardiac cachexia. Cardiology was consulted concerning any change in medicines. We will discontinue metformin due to his creatinine elevation, lower his Januvia to 50 mg daily and use sliding scale insulin. TRANSINT:[id number] Voice Confirmation ID: [id number] DOCUMENT ID: [id number] HISTORY AND PHYSICAL [id number] KARO SPEAR JR, TIMOTHY MD at 1731 CC: [id number] DICTATION DATE: 02/19/19726 PARTY BUS DRIVER: 02/19/19 0820 ADM IN [facility] [address] [place] [address]
--- NOTE | 2019-02-19 19:25 | NUR ---
RESUMING PATIENT CARE. PATIENT IS ALERT AND ORIENTED. PATIENT SITTING UP ON SIDE OF BED. IS PUTTING LOTION ON HIS BACK. STATES THAT PATIENT HAD A RASH ON HIS BACK AND NOW THAT THE RASH IS GONE. PATIENT HAS BAD DRY SKIN. RESPIRATIONS ARE EVEN AND UNLABORED. NO S/S OF DISTRESS. NO C/O PAIN. CALL LIGHT WITHIN REACH. WILL CPOC.
[2019-02-19 20:43] VITALS: BP 132/87
[2019-02-20 00:04] VITALS: BP 123/78
[2019-02-20 04:12] VITALS: BP 114/57
[2019-02-20 06:23] LABS: BASOPHILS 0.1 % (0-2); EOSINOPHILS 0 % (0-7); HEMATOCRIT 37.8 % (42.0-54.0); HEMOGLOBIN 12.5 g/dL (13.5-17.5); IMMATURE GRANULOCYTES 0.2 % (0-5); LYMPHOCYTES 12.9 % (15-50); MCHC 33.1 g/dL (31.0-37.0); MCV 90.9 fL (80.0-100.0); MEAN PLATELET VOLUME 11.2 fL (7.4-10.4); MONOCYTES 7.8 % (2-11); PLATELET COUNT 372 10x3/uL (130-400); RBC 4.16 10x6/uL (4.20-6.10); RDW 16.5 % (11.5-14.5); WBC 8.7 10x3/uL (4.8-10.8)
[2019-02-20 06:51] LABS: ANION GAP 24.1 mmol/L (8-16); CARBON DIOXIDE 19.4 mmol/L (21.0-32.0); MAGNESIUM - SERUM 2.2 mg/dL (1.8-2.4); POTASSIUM - SERUM 5.5 mmol/L (3.5-5.1); T4 THYROXIN - FREE 1.16 ng/dL (0.76-1.46); THYROID STIMULATING HORMONE 2.84 uIU/mL (0.36-3.74)
[2019-02-20 06:53] LABS: PHOSPHOROUS 6.4 mg/dL (2.5-4.9)
--- NOTE | 2019-02-20 07:00 | NUR ---
RECEIVED REPORT. ASSUMED CARE OF PATIENT. PATIENT SITTING TO SIDE OF BED. PATIENT AND OTHER FEMALE VISITOR AT BEDSIDE. PATIENT ORIENTED TO PERSON ONLY. REORIETED TO SITUATION, TIME, AND PLACE. ASSISTED PATIENT TO STAND AT BEDSIDE AND USE THE URINAL. O2 SAT 99% ON ROOM AIR. PATIENT STATES HE FEELS SHORT OF BREATH. TEMPERATURE IN ROOM HOT AND MUGGY. ADJUSTED TEMPERATURE AND ROOM STARTED TO COOL DOWN, PATIENT STATES HE FEELS BETTER. CALL LIGHT WITHIN REACH.
[2019-02-20 08:42] VITALS: BP 123/92
--- NOTE | 2019-02-20 11:25 | NUR ---
FSBS 179. PATIENT NOT EATING. PATIENT WITH EYES CLOSED AT THIS TIME. PATIENTS REMAINS AT BEDSIDE.
--- NOTE | 2019-02-20 12:06 | NUR ---
22 GAUGE IV PLACED TO RIGHT HAND X 1 STICK. GOOD BLOOD RETURN, EASY FLUSH. TAPED,DATED AND SECURED. PATIENT TOLERATED IV PLACEMENT WELL. PATIENT WITH EYES CLOSED DURING THE ENTIRE PROCEDURE. PATIENT OPENS EYES WHEN HIS NAME IS VERBALLY CALLED. IV FLUIDS INFUSING AT 75ML/HR ORDERED AT THIS TIME.
--- NOTE | 2019-02-20 12:09 | NUR ---
PATIENT EASILY AROUSED BUT REFUSING TO EAT. DIET MESSAGE SENT FOR GLUCERNA.
[2019-02-20 12:13] VITALS: BP 137/76
--- NOTE | 2019-02-20 15:12 | NUR ---
PATIENT LEFT UNIT VIA WHEELCHAIR AT THIS TIME WITH ALL PERSONAL BELONGINGS. PATIENT DISCHARGED BACK TO [facility] VIA SCAT BUS. PATIENT IN NO DISTRESS UPON LEAVING THE UNIT.
[2019-02-20 15:50] VITALS: BP 125/88
--- NOTE | 2019-02-20 16:00 | NUR ---
FSBS 165. NO INSULIN COVERAGE. PATIENT NOT EATING WELL. NO DISTRESS. CALL LIGHT WITHIN REACH.
--- NOTE | 2019-02-20 16:30 | NUR ---
ASSISTED PATIENT OOB TO USE THE URINAL AND BACK TO BED. NO DISTRESS. CALL LIGHT WITHIN REACH. FAMILY AT BEDSIDE.
--- NOTE | 2019-02-20 16:58 | MORECARE ---
CASE MANAGEMENT DISCHARGE SUMMARY PATIENT: MODESTO SPEAR JR UNIT: [id number] ADM DATE: 02/18/19 AGE: 83 : 33 SEX: M ROOM/BED: D.2134 AUTHOR: TEOFILO KELLY PHYSICIAN: REFERRING PHYSICIAN: ALBERTO OROZCO MD DATE OF SERVICE: 02/20/19 Discharge Plan Patient Name: MODESTO SPEAR Facility: [facility]:[place] : 1935 Planned Disposition: Home Anticipated Discharge Date: Discharge Date: Expected LOS: Initial Reviewer: [email or web address] Initial Review Date: 02/19/2019 Generated: 02/20/19 5:58 pm Comments DCP- Discharge Planning Updated by [email or web address]: Modesto Monk on 02/20/19 3:[address] Patient Name: MODESTO SEPAR Encounter No: [id number] : 1935 Primary Insurance: MEDICARE A & B Anticipated DC Date: Planned Disposition: Home DCP follow-up note: CM MET WITH PT AND SPOUSE IN ROOM TO DISCUSS DISCHARGE PLANNING AND NEEDS. CM DISCUSSED REHAB SERVICES, LOCATIONS AND PROVIDERS. PT'S REPORTS PT HAS BEEN "OUT OF IT" AND THERAPY IS YET TO ACTUALLY START WORKING WITH PT PT WAS NOT ABLE TO DO ANYTHING THIS MORNING. PT'S SPOUSE WANTS TO SEE HOW PT DOES WITH THERAPY BEFORE MAKING FURTHER DECISIONS REGARDING REHAB. CM TO FOLLOW AND ASSIST NEEDED. DELORES Espitia DCP- Discharge Planning Updated by [id number]: Modesto Monk on 02/19/19 2:[address] Patient Name: MODESTO SPEAR Admission Status: ER Accout number: [id number] Admission Date: 02-18-2019 : 1935 Admission Diagnosis: Attending: ALBERTO OROZCO Current LOS: 1 Anticipated DC Date: Planned Disposition: Home Primary Insurance: MEDICARE A & B Discharge Planning Comments: CM RECEIVED ORDER FOR REHAB OR HOME HEALTH. CM MET WITH PT IN ROOM TO DISCUSS DISCHARGE PLANNING AND NEEDS. PT REPORTS LIVING AT HOME INDEPENDENTLY WITH HIS . PT HAS GLUCOMETER AND GETS SUPPLIES FROM [employer]; PT HAS NO MEDICAL EQUIPMENT PROVIDER PREFERENCE AND NO OUTSIDE SERVICES ASSISTING IN THE HOME. CM DISCUSSED AVAILABILITY OF HOME HEALTH, REHAB SERVICES AND MEDICAL EQUIPMENT. PT DENIES DISCHARGE NEEDS, AND THINKS HE WILL BE GOING HOME AT DISCHARGE. PT REPORTS HIS WILL PICK HIM UP FOR DISCHARGE HOME. IMPORTANT MESSAGE FROM MED[employer] PROVIDED AND EXPLAINED. CM SPOKE TO BEDSIDE NURSE AND OBTAINED ORDER FOR PHYSICAL THERAPY EVALUATION. PT STATES PLAN TO GO HOME AND DENIES CURRENT DISCHARGE NEEDS, BUT PLANS TO SPEAK TO HIS TODAYREGARDING DISCHARGE NEEDS. CM WAITING PT TO DISCUSS DISCHARGE PLAN WITH AND INFORM DRIVE AWAY DRIVER. CM LEFT CM CONTACT INFORMATION WITH PT IN ROOM. Plastic Panel Installer: Modesto Monk DCPIA - Discharge Planning Initial Assessment Updated by [id number]: Modesto Monk on 02/19/19 3:13 pm * Is the patient Alert and Oriented? Yes * How many steps to enter\\exit or inside your home? 3-O / 3-I * PCP DR. KNOWLES * [facility] * Preadmission Environment Home with Family * ADLs Independent * Equipment Glucometer * Other Equipment NO MEDICAL EQUIPMENT PROVIDER PREFERENCE * List name and contact numbers for known caregivers / representatives who currently or will assist patient after discharge: STEFANIE SPEAR, SPOUSE, * Verbal permission to speak to the caregivers and representatives has been obtained from the patient. N/A * Community resources currently utilized None * Please name any agencies selected above. NONE * Additional services required to return to the preadmission environment? No * Can the patient safely return to the preadmission environment? Yes * Has this patient been hospitalized within the prior 30 days at any hospital? No Coverage Notice Reviewer: [id number] - Modesto Monk Notice Issued Date-Time: 02/19/2019 15:00 Notice Type: IM Discharge Notice Notice Delivered To: Patient Relationship to Patient: Band Director Name: Delivery Method: HAND - Hand Delivered Lynn Days: Prior Verbal Notification: Recipient Understood Notice: Yes Recipient Signature: Yes Med Rec Note Co-signed by Attending: Coverage Notice Comment: Last DP export: 02/19/19 2:19 p Patient Name: MODESTO SPEAR Page 13929 at 1658 All edits/amendments must be made on the electronic document DICTATION DATE: 02/20/191657 COMMERCIAL MAKEUP ARTIST: ENRIQUE 02/20/191657 RPT#: [id number] AK DATE: STATUS: ADM IN [facility] [address] [place] [address] END OF REPORT
--- NOTE | 2019-02-20 19:00 | NUR ---
PATIENT LAYING IN BED. EYES CLOSED, CHEST RISING AND FALLING. NO DISTRESS NOTED. FAMILY AT BEDSIDE.
[2019-02-20 20:00] VITALS: BP 132/88
[2019-02-21] VITALS: BP 106/68
--- NOTE | 2019-02-21 01:18 | NUR ---
PATIENT LAYING IN BED. EYES CLOSED, CHEST RISING AND FALLING. NO DISTRESS NOTED.
--- NOTE | 2019-02-21 02:44 | NUR ---
I have reviewed this patient and I concur with the Shift Assessment completed by the Licensed Practical Nurse today this shift.
[2019-02-21 04:15] VITALS: BP 117/70
[2019-02-21 07:10] LABS: ANION GAP 19.2 mmol/L (8-16); CALCIUM 7.9 mg/dL (8.5-10.1); POTASSIUM - SERUM 5.2 mmol/L (3.5-5.1)
[2019-02-21 08:48] VITALS: BP 134/80
[2019-02-21 12:13] VITALS: BP 137/80
--- NOTE | 2019-02-21 14:11 | NUR ---
Nutrition Follow-up: Pt's reports improved PO intake this AM. Diet changed from Renal to Diabetic per MD for improved acceptance. Last BM: 02/20 Wt: 158# Labs noted: K+ 5.2, Glu 159 Meds noted: Megace, Januvia, Glucotrol, Kayexelate, Humulin Rec continue current diet as tolerated. Offer nutrition supplements. Will provide food choices with selective menus and honor food preferences. RD following.
[2019-02-21 15:57] VITALS: BP 120/82
--- NOTE | 2019-02-21 17:54 | NUR ---
PATIENT IS RESTING ON HIS BACK BREATHING WITH HIS MOUTH OPEN AND EYES CLOSED AT THIS TIME. IV INFUSING ORDERED. FAMILY AT BEDSIDE. I ENCOURAGED FAMILY TO ASSIST WITH ORAL CARE AND THEY AGREED.
--- NOTE | 2019-02-21 19:10 | NUR ---
EVENING ROUNDS MADE. PT IS AAOX3, VSS, SR ON TELE AT 85. PT IS LAYING IN BED WITH EYES CLOSED. FAMILY AT BEDSIDE. NO C/O PAIN AT THIS TIME. WILL CONT WITH POC.
[2019-02-21 20:00] VITALS: BP 110/68
[2019-02-22 04:30] VITALS: BP 135/89
[2019-02-22 06:31] LABS: ANION GAP 14.5 mmol/L (8-16); CALCIUM 7.5 mg/dL (8.5-10.1); CARBON DIOXIDE 24.1 mmol/L (21.0-32.0); CREATININE - SERUM 1.9 mg/dL (0.6-1.3)
[2019-02-22 06:32] LABS: POTASSIUM - SERUM 3.6 mmol/L (3.5-5.1)
[2019-02-22 08:58] VITALS: BP 138/87
--- NOTE | 2019-02-22 09:23 | MORECARE ---
CASE MANAGEMENT DISCHARGE SUMMARY PATIENT: MODESTO SPEAR JR UNIT: [id number] ADM DATE: 02/18/19 AGE: 83 : 33 SEX: M ROOM/BED: D.2134 AUTHOR: TEOFILO KELLY PHYSICIAN: REFERRING PHYSICIAN: ALBERTO OROZCO MD DATE OF SERVICE: 02/22/19 Discharge Plan Patient Name: MODESTO SPEAR Facility: [facility]:[place] : 1935 Planned Disposition: Retirement Facility Anticipated Discharge Date: 02/22/19 Discharge Date: Expected LOS: 4 Initial Reviewer: [email or web address] Initial Review Date: 02/19/2019 Generated: 02/22/19 10:22 am Comments DCP- Discharge Planning Updated by [id number]: Modesto Monk on 02/20/19 3:[address] Patient Name: MODESTO SPEAR Encounter No: [id number] : 1935 Primary Insurance: MEDICARE A & B Anticipated DC Date: Planned Disposition: Home DCP follow-up note: CM MET WITH PT AND SPOUSE IN ROOM TO DISCUSS DISCHARGE PLANNING AND NEEDS. CM DISCUSSED REHAB SERVICES, LOCATIONS AND PROVIDERS. PT'S REPORTS PT HAS BEEN "OUT OF IT" AND THERAPY IS YET TO ACTUALLY START WORKING WITH PT PT WAS NOT ABLE TO DO ANYTHING THIS MORNING. PT'S SPOUSE WANTS TO SEE HOW PT DOES WITH THERAPY BEFORE MAKING FURTHER DECISIONS REGARDING REHAB. CM TO FOLLOW AND ASSIST NEEDED. DELORES Espitia DCP- Discharge Planning Updated by [id number]: Modesto Monk on 02/19/19 2:[address] Patient Name: MODESTO SPEAR Admission Status: ER Accout number: [id number] Admission Date: 02-18-2019 : 1935 Admission Diagnosis: Attending: ALBERTO OROZCO Current LOS: 1 Anticipated DC Date: Planned Disposition: Home Primary Insurance: MEDICARE A & B Discharge Planning Comments: CM RECEIVED ORDER FOR REHAB OR HOME HEALTH. CM MET WITH PT IN ROOM TO DISCUSS DISCHARGE PLANNING AND NEEDS. PT REPORTS LIVING AT HOME INDEPENDENTLY WITH HIS . PT HAS GLUCOMETER AND GETS SUPPLIES FROM [employer]; PT HAS NO MEDICAL EQUIPMENT PROVIDER PREFERENCE AND NO OUTSIDE SERVICES ASSISTING IN THE HOME. CM DISCUSSED AVAILABILITY OF HOME HEALTH, REHAB SERVICES AND MEDICAL EQUIPMENT. PT DENIES DISCHARGE NEEDS, AND THINKS HE WILL BE GOING HOME AT DISCHARGE. PT REPORTS HIS WILL PICK HIM UP FOR DISCHARGE HOME. IMPORTANT MESSAGE FROM [employer] PROVIDED AND EXPLAINED. CM SPOKE TO BEDSIDE NURSE AND OBTAINED ORDER FOR PHYSICAL THERAPY EVALUATION. PT STATES PLAN TO GO HOME AND DENIES CURRENT DISCHARGE NEEDS, BUT PLANS TO SPEAK TO HIS TODAYREGARDING DISCHARGE NEEDS. CM WAITING PT TO DISCUSS DISCHARGE PLAN WITH AND INFORM CALCINER FEEDER. CM LEFT CM CONTACT INFORMATION WITH PT IN ROOM. Laborer Mine: Modesto Monk DCPIA - Discharge Planning Initial Assessment Updated by [id number]: Modesto Monk on 02/19/19 3:13 pm * Is the patient Alert and Oriented? Yes * How many steps to enter\\exit or inside your home? 3-O / 3-I * PCP DR. KNOWLES * [facility] * Preadmission Environment Home with Family * ADLs Independent * Equipment Glucometer * Other Equipment NO MEDICAL EQUIPMENT PROVIDER PREFERENCE * List name and contact numbers for known caregivers / representatives who currently or will assist patient after discharge: STEFANIE SPEAR, SPOUSE, * Verbal permission to speak to the caregivers and representatives has been obtained from the patient. N/A * Community resources currently utilized None * Please name any agencies selected above. NONE * Additional services required to return to the preadmission environment? No * Can the patient safely return to the preadmission environment? Yes * Has this patient been hospitalized within the prior 30 days at any hospital? No External Providers [facility] Provider[facility] Next Contact Date: 02/22/2019 Service Request Date: Service Type: Resolution: Reviewer: Comments: Coverage Notice Reviewer: [id number] - Modesto Monk Notice Issued Date-Time: 02/19/2019 15:00 Notice Type: IM Discharge Notice Notice Delivered To: Patient Relationship to Patient: Lever Tender Name: Delivery Method: HAND - Hand Delivered Lynn Days: Prior Verbal Notification: Recipient Understood Notice: Yes Recipient Signature: Yes Med Rec Note Co-signed by Attending: Coverage Notice Comment: Last DP export: 02/20/19 3:58 p Patient Name: MODESTO SPEAR Page [phone] at 0923 All edits/amendments must be made on the electronic document DICTATION DATE: 02/22/19921 CHIP SEPARATOR: ENRIQUE 02/22/19921 RPT#: [id number] DC DATE: STATUS: ADM IN [facility] [address] [place] [address] END OF REPORT
--- NOTE | 2019-02-22 09:45 | MORECARE ---
CASE MANAGEMENT DISCHARGE SUMMARY PATIENT: MODESTO SPEAR JR UNIT: [id number] ADM DATE: 02/18/19 AGE: 83 : 33 SEX: M ROOM/BED: D.2134 AUTHOR: LETICIADOC PHYSICIAN: REFERRING PHYSICIAN: ALBERTO OROZCO MD DATE OF SERVICE: 02/22/19 Discharge Plan Patient Name: MODESTO SPEAR Facility: [facility]:[place] : 1935 Planned Disposition: Residential Facility Anticipated Discharge Date: 02/22/19 Discharge Date: Expected LOS: 4 Initial Reviewer: [email or web address] Initial Review Date: 02/19/2019 Generated: 02/22/19 10:44 am Comments DCP- Discharge Planning Updated by [email or web address]: Modesto Monk on 02/22/19 8:[address] Patient Name: MODESTO SPEAR Encounter No: [id number] : 1935 Primary Insurance: MEDICARE A & B Anticipated DC Date: 02-22-2019 Planned Disposition: Residential Facility External Planned Provider: [facility], MEDICARE REHAB BED DCP follow-up note: CM REVIEWED CHART, DOCTOR NOTES THAT PT WILL GO TO [facility] FOR REHAB IF BED IS AVAILABLE. CM MET WITH PT AND SPOUSE IN ROOM, DISCUSSED REHAB OPTIONS, LOCATIONS AND PROVIDERS, GAVE LISTING OF HALF-WAY FACILITIES. PT'S SPOUSE REPORTS THEY WANT PT AT [facility] IT IS ONLY 3 MILES FROM HER HOUSE. CHOICE SIGNED FOR [facility]. IMPORTANT MESSAGE FROM MEDICARE PROVIDED AND EXPLAINED. CM CALLED [facility], , SPOKE TO RADHA WHO WILL SCREEN FOR REHAB ADMISSION. PT INFORMED RADHA THAT PT IS READY TO DISCHARGE TO REHAB. CM FAXED REHAB REFERRAL TO [facility] AT [phone]. CM WIATING ADMISSION DETERMINATION FROM [facility]. DELORES Espitia DCP- Discharge Planning Updated by [email or web address]: Modesto Monk on 02/20/19 3:[address] Patient Name: MODESTO SPEAR Encounter No: [id number] : 1935 Primary Insurance: MEDICARE A & B Anticipated DC Date: Planned Disposition: Home DCP follow-up note: CM MET WITH PT AND SPOUSE IN ROOM TO DISCUSS DISCHARGE PLANNING AND NEEDS. CM DISCUSSED REHAB SERVICES, LOCATIONS AND PROVIDERS. PT'S REPORTS PT HAS BEEN "OUT OF IT" AND THERAPY IS YET TO ACTUALLY START WORKING WITH PT PT WAS NOT ABLE TO DO ANYTHING THIS MORNING. PT'S SPOUSE WANTS TO SEE HOW PT DOES WITH THERAPY BEFORE MAKING FURTHER DECISIONS REGARDING REHAB. CM TO FOLLOW AND ASSIST NEEDED. Mod[place] Monk, CASE MANAGEMENT DCP- Discharge Planning Updated by [id number]: Modesto Monk on 02/19/19 2:[address] Patient Name: MODESTO SPEAR Admission Status: ER Accout number: [id number] Admission Date: 02-18-2019 : 1935 Admission Diagnosis: Attending: ALBERTO OROZCO Current LOS: 1 Anticipated DC Date: Planned Disposition: Home Primary Insurance: MEDICARE A & B Discharge Planning Comments: CM RECEIVED ORDER FOR REHAB OR HOME HEALTH. CM MET WITH PT IN ROOM TO DISCUSS DISCHARGE PLANNING AND NEEDS. PT REPORTS LIVING AT HOME INDEPENDENTLY WITH HIS . PT HAS GLUCOMETER AND GETS SUPPLIES FROM [employer]; PT HAS NO MEDICAL EQUIPMENT PROVIDER PREFERENCE AND NO OUTSIDE SERVICES ASSISTING IN THE HOME. CM DISCUSSED AVAILABILITY OF HOME HEALTH, REHAB SERVICES AND MEDICAL EQUIPMENT. PT DENIES DISCHARGE NEEDS, AND THINKS HE WILL BE GOING HOME AT DISCHARGE. PT REPORTS HIS WILL PICK HIM UP FOR DISCHARGE HOME. IMPORTANT MESSAGE FROM MEDIC[employer] PROVIDED AND EXPLAINED. CM SPOKE TO BEDSIDE NURSE AND OBTAINED ORDER FOR PHYSICAL THERAPY EVALUATION. PT STATES PLAN TO GO HOME AND DENIES CURRENT DISCHARGE NEEDS, BUT PLANS TO SPEAK TO HIS TODAYREGARDING DISCHARGE NEEDS. CM WAITING PT TO DISCUSS DISCHARGE PLAN WITH AND INFORM SOIL CHEMIST. CM LEFT CM CONTACT INFORMATION WITH PT IN ROOM. Fighting Vehicle Systems Maintainer: Modesto Monk DCPIA - Discharge Planning Initial Assessment Updated by [email or web address]: Modesto Monk on 02/19/19 3:13 pm * Is the patient Alert and Oriented? Yes * How many steps to enter\\exit or inside your home? 3-O / 3-I * PCP DR. KNOWLES * [facility] * Preadmission Environment Home with Family * ADLs Independent * Equipment Glucometer * Other Equipment NO MEDICAL EQUIPMENT PROVIDER PREFERENCE * List name and contact numbers for known caregivers / representatives who currently or will assist patient after discharge: STEFANIE SPEAR, SPOUSE, * Verbal permission to speak to the caregivers and representatives has been obtained from the patient. N/A * Community resources currently utilized None * Please name any agencies selected above. NONE * Additional services required to return to the preadmission environment? No * Can the patient safely return to the preadmission environment? Yes * Has this patient been hospitalized within the prior 30 days at any hospital? No Coverage Notice Reviewer: ANAID Monk Notice Issued Date-Time: 02/19/2019 15:00 Notice Type: IM Discharge Notice Notice Delivered To: Patient Relationship to Patient: Cloud Architect Name: Delivery Method: HAND - Hand Delivered Lynn Days: Prior Verbal Notification: Recipient Understood Notice: Yes Recipient Signature: Yes Med Rec Note Co-signed by Attending: Coverage Notice Comment: Reviewer: ANAID Monk Notice Issued Date-Time: 02/22/2019 8:40 Notice Type: Patient Choice Letter Notice Delivered To: Family Member Relationship to Patient: Spouse Cloud Architect Name: STEFANIE SPEAR Delivery Method: HAND - Hand Delivered Lynn Days: Prior Verbal Notification: Recipient Understood Notice: Yes Recipient Signature: Yes Med Rec Note Co-signed by Attending: Coverage Notice Comment: Reviewer: ANAID Monk Notice Issued Date-Time: 02/22/2019 8:40 Notice Type: IM Discharge Notice Notice Delivered To: Family Member Relationship to Patient: Spouse Cloud Architect Name: STEFANIE SPEAR Delivery Method: HAND - Hand Delivered Lynn Days: Prior Verbal Notification: Recipient Understood Notice: Yes Recipient Signature: Yes Med Rec Note Co-signed by Attending: Coverage Notice Comment: Last DP export: 02/22/19 8:22 am Patient Name: MODESTO SPEAR Page [phone] at 0945 All edits/amendments must be made on the electronic document DICTATION DATE: 02/22/19943 AUTO BODY REPAIRMAN: ENRIQUE 02/22/19943 RPT#: [id number] PR DATE: STATUS: ADM IN [facility] [address] [place] [address] END OF REPORT
--- NOTE | 2019-02-22 12:09 | NUR ---
THIS NURSE OBSERVE PT CALL LIGHT BEING ON WHEN DOING MEDICATION PASS. THIS NURSE ANSWERED PT LIGHT AND THE WAS UPSET STATING " THAT WE HAVE REC'D POOR CARE OVER THE WEEKEND AND THAT YOU CANT GET ANYONE TO GET ANYTHING FOR YOU. AND THAT THEY HAVE HAD THEY LIGHT ON FOR 10 MINUTES." THIS NURSE THEN APOLOGIZED FOR WHAT HAD HAPPENED OVER THE WEEKNEND AND TO JUST LET ME KNOW IF THEY NEED ANYTHING. ALSO INFORMED THE THAT THIS NURSE WAS IN ANOTHER PT ROOM ADDRESSING A SITUATION AND THAT I WOULD BE WITH THEM SOON I CAN. THEN STATED " I WASN'T TALKING ABOUT YOU. THIS IS YOUR FIRST DAY WITH US AND YOU HAVE BEEN GREAT." INFORMED THAT IF THEY NEED ANYTHING TO PLEASE TURN ON LIGHT AND WE WILL ADDRESS NEEDS SOON POSSIBLE.
[2019-02-22 12:30] VITALS: BP 128/82
--- NOTE | 2019-02-22 15:59 | MORECARE ---
CASE MANAGEMENT DISCHARGE SUMMARY PATIENT: MODESTO SPEAR JR UNIT: [id number] ADM DATE: 02/18/19 AGE: 83 : 33 SEX: M ROOM/BED: D.2134 AUTHOR: LETICIA,DOC PHYSICIAN: REFERRING PHYSICIAN: ALBERTO OROZCO MD DATE OF SERVICE: 02/22/19 Discharge Plan Patient Name: MODESTO SPEAR Facility: [facility]:[place] : 1935 Planned Disposition: Group Home Facility Anticipated Discharge Date: 02/23/19 Discharge Date: Expected LOS: 5 Initial Reviewer: [id number] Initial Review Date: 02/19/2019 Generated: 02/22/19 4:59 pm Comments DCP- Discharge Planning Updated by [id number]: Modesto Monk on 02/22/19 8:[address] Patient Name: MODESTO SPEAR Encounter No: [id number] : 1935 Primary Insurance: MEDICARE A & B Anticipated DC Date: 02-22-2019 Planned Disposition: Group Home Facility External Planned Provider: [facility], MEDICARE REHAB BED DCP follow-up note: CM REVIEWED CHART, DOCTOR NOTES THAT PT WILL GO TO [facility] FOR REHAB IF BED IS AVAILABLE. CM MET WITH PT AND SPOUSE IN ROOM, DISCUSSED REHAB OPTIONS, LOCATIONS AND PROVIDERS, GAVE LISTING OF [facility] FACILITIES. PT'S SPOUSE REPORTS THEY WANT PT AT [facility] IT IS ONLY [address]ES FROM HER HOUSE. CHOICE SIGNED FOR [facility]. IMPORTANT MESSAGE FROM MEDICARE PROVIDED AND EXPLAINED. CM CALLED [facility], , SPOKE TO RADHA WHO WILL SCREEN FOR REHAB ADMISSION. PT INFORMED RADHA THAT PT IS READY TO DISCHARGE TO REHAB. CM FAXED REHAB REFERRAL TO [facility] AT [phone]. CM WIATING ADMISSION DETERMINATION FROM [facility]. DELORES Espitia DCP- Discharge Planning Updated by [id number]: Modesto Monk on 02/20/19 3:[address] Patient Name: MODESTO SPEAR Encounter No: [id number] : 1935 Primary Insurance: MEDICARE A & B Anticipated DC Date: Planned Disposition: Home DCP follow-up note: CM MET WITH PT AND SPOUSE IN ROOM TO DISCUSS DISCHARGE PLANNING AND NEEDS. CM DISCUSSED REHAB SERVICES, LOCATIONS AND PROVIDERS. PT'S REPORTS PT HAS BEEN "OUT OF IT" AND THERAPY IS YET TO ACTUALLY START WORKING WITH PT PT WAS NOT ABLE TO DO ANYTHING THIS MORNING. PT'S SPOUSE WANTS TO SEE HOW PT DOES WITH THERAPY BEFORE MAKING FURTHER DECISIONS REGARDING REHAB. CM TO FOLLOW AND ASSIST NEEDED. Modesto Monk, CASE MANAGEMENT DCP- Discharge Planning Updated by [email or web address]: Modesto Monk on 02/19/19 2:[address] Patient Name: MODESTO SPEAR Admission Status: ER Accout number: [id number] Admission Date: 02-18-2019 : 1935 Admission Diagnosis: Attending: ALBERTO OROZCO Current LOS: 1 Anticipated DC Date: Planned Disposition: Home Primary Insurance: MEDICARE A & B Discharge Planning Comments: CM RECEIVED ORDER FOR REHAB OR HOME HEALTH. CM MET WITH PT IN ROOM TO DISCUSS DISCHARGE PLANNING AND NEEDS. PT REPORTS LIVING AT HOME INDEPENDENTLY WITH HIS . PT HAS GLUCOMETER AND GETS SUPPLIES FROM [employer]; PT HAS NO MEDICAL EQUIPMENT PROVIDER PREFERENCE AND NO OUTSIDE SERVICES ASSISTING IN THE HOME. CM DISCUSSED AVAILABILITY OF HOME HEALTH, REHAB SERVICES AND MEDICAL EQUIPMENT. PT DENIES DISCHARGE NEEDS, AND THINKS HE WILL BE GOING HOME AT DISCHARGE. PT REPORTS HIS WILL PICK HIM UP FOR DISCHARGE HOME. IMPORTANT MESSAGE FROM MEDICARE PROVIDED AND EXPLAINED. CM SPOKE TO BEDSIDE NURSE AND OBTAINED ORDER FOR PHYSICAL THERAPY EVALUATION. PT STATES PLAN TO GO HOME AND DENIES CURRENT DISCHARGE NEEDS, BUT PLANS TO SPEAK TO HIS TODAYREGARDING DISCHARGE NEEDS. CM WAITING PT TO DISCUSS DISCHARGE PLAN WITH AND INFORM CABINET WORKER. CM LEFT CM CONTACT INFORMATION WITH PT IN ROOM. Derrick Builder: Modesto Monk DCPIA - Discharge Planning Initial Assessment Updated by [id number]: Modesto Monk on 02/19/19 3:13 pm * Is the patient Alert and Oriented? Yes * How many steps to enter\\exit or inside your home? 3-O / 3-I * PCP DR. KNOWLES * [facility] * Preadmission Environment Home with Family * ADLs Independent * Equipment Glucometer * Other Equipment NO MEDICAL EQUIPMENT PROVIDER PREFERENCE * List name and contact numbers for known caregivers / representatives who currently or will assist patient after discharge: STEFANIE SPEAR, SPOUSE, * Verbal permission to speak to the caregivers and representatives has been obtained from the patient. N/A * Community resources currently utilized None * Please name any agencies selected above. NONE * Additional services required to return to the preadmission environment? No * Can the patient safely return to the preadmission environment? Yes * Has this patient been hospitalized within the prior 30 days at any hospital? No Coverage Notice Reviewer: ANAID Monk Notice Issued Date-Time: 02/19/2019 15:00 Notice Type: IM Discharge Notice Notice Delivered To: Patient Relationship to Patient: Typesetter Apprentice Name: Delivery Method: HAND - Hand Delivered Lynn Days: Prior Verbal Notification: Recipient Understood Notice: Yes Recipient Signature: Yes Med Rec Note Co-signed by Attending: Coverage Notice Comment: Reviewer: ANAID Monk Notice Issued Date-Time: 02/22/2019 8:40 Notice Type: Patient Choice Letter Notice Delivered To: Family Member Relationship to Patient: Spouse Typesetter Apprentice Name: STEFANIE SPEAR Delivery Method: HAND - Hand Delivered Lynn Days: Prior Verbal Notification: Recipient Understood Notice: Yes Recipient Signature: Yes Med Rec Note Co-signed by Attending: Coverage Notice Comment: Reviewer: ANAID Monk Notice Issued Date-Time: 02/22/2019 8:40 Notice Type: IM Discharge Notice Notice Delivered To: Family Member Relationship to Patient: Spouse Typesetter Apprentice Name: STEFANIE SPEAR Delivery Method: HAND - Hand Delivered Lynn Days: Prior Verbal Notification: Recipient Understood Notice: Yes Recipient Signature: Yes Med Rec Note Co-signed by Attending: Coverage Notice Comment: Last DP export: 02/22/19 8:45 am Patient Name: MODESTO SPEAR Page [id number] at 1559 All edits/amendments must be made on the electronic document DICTATION DATE: 02/22/19 1559 STEAM CONDITIONER OPERATOR: ENRIQUE 02/22/19 1559 RPT#: [id number] PA DATE: STATUS: ADM IN [facility] [address] [place] [address] END OF REPORT
--- NOTE | 2019-02-22 16:08 | MORECARE ---
CASE MANAGEMENT DISCHARGE SUMMARY PATIENT: MODESTO SPEAR JR UNIT: [id number] ADM DATE: 02/18/19 AGE: 83 : 33 SEX: M ROOM/BED: D.2134 AUTHOR: LETICIADOC PHYSICIAN: REFERRING PHYSICIAN: ALBRETO OROZCO MD DATE OF SERVICE: 02/22/19 Discharge Plan Patient Name: MODESTO SPEAR Facility: [facility]:[place] : 1935 Planned Disposition: Assisted Facility Anticipated Discharge Date: 02/23/19 Discharge Date: Expected LOS: 5 Initial Reviewer: [id number] Initial Review Date: 02/19/2019 Generated: 02/22/19 5:08 pm Comments DCP- Discharge Planning Updated by [id number]: Modesto Monk on 02/22/19 3:[address] Patient Name: MODESTO SPEAR Encounter No: [id number] : 1935 Primary Insurance: MEDICARE A & B Anticipated DC Date: 02-23-2019 Planned Disposition: Assisted Facility External Planned Provider: [facility], MEDICARE REHAB BED DCP follow-up note: CM RECEIVED CALL FROM RADHA OF [facility], , WHO ADVISED THEY WILL ACCEPT PT FOR REHAB AND WANT TO HOOP BENDING MACHINE OPERATOR FIRST THING TOMORROW MORNING. PT HAS 3O SKILLED DAYS FOR REHAB SERVICES. PT NOTIFIED PT IN ROOM. CM NOTIFIED PT'S SPOUSE IN ROOM 2004. PT'S SPOUSE PROVIDED NUMBER FOR DENA ESCALONA, HER SON, WHO CAN ASSIST [facility] WITH PAPERWORK IF NEEDED; [phone]. CM NOTIFIED NURSE BRAYAN OF DR. KNOWLES'S OFFICE. FOR DISCHARGE TOMORROW MORNING, 02-23-19, FAX DISCHARGE INFORMATION TO [facility], . NURSE REPORT TO BE CALLED TO [facility] AT [phone]. [facility] TO ARRANGE VAN TRANSPORTATION FOR HOOP BENDING MACHINE OPERATOR TOMORROW MORNING. Modesto Monk, CASE MANAGEMENT DCP- Discharge Planning Updated by [id number]: Modesto Monk on 02/22/19 8:[address] Patient Name: MODESTO SPEAR Encounter No: [id number] : 1935 Primary Insurance: MEDICARE A & B Anticipated DC Date: 02-22-2019 Planned Disposition: Assisted Facility External Planned Provider: [facility], MEDICARE REHAB BED DCP follow-up note: CM REVIEWED CHART, DOCTOR NOTES THAT PT WILL GO TO [facility] FOR REHAB IF BED IS AVAILABLE. CM MET WITH PT AND SPOUSE IN ROOM, DISCUSSED REHAB OPTIONS, LOCATIONS AND PROVIDERS, GAVE LISTING OF RESIDENTIAL FACILITIES. PT'S SPOUSE REPORTS THEY WANT PT AT [facility] IT IS ONLY [address] MILES FROM HER HOUSE. CHOICE SIGNED FOR [facility]. IMPORTANT MESSAGE FROM MEDICARE PROVIDED AND EXPLAINED. CM CALLED [facility], , SPOKE TO RADHA WHO WILL SCREEN FOR REHAB ADMISSION. PT INFORMED RADHA THAT PT IS READY TO DISCHARGE TO REHAB. CM FAXED REHAB REFERRAL TO [facility] AT [phone]. CM WIATING ADMISSION DETERMINATION FROM [facility] AND [facility]. Modesto Monk CASE MANAGEMENT DCP- Discharge Planning Updated by [id number]: Modesto Monk on 02/20/19 3:[address] Patient Name: MODESTO SPEAR Encounter No: [id number] : 1935 Primary Insurance: MEDICARE A & B Anticipated DC Date: Planned Disposition: Home DCP follow-up note: CM MET WITH PT AND SPOUSE IN ROOM TO DISCUSS DISCHARGE PLANNING AND NEEDS. CM DISCUSSED REHAB SERVICES, LOCATIONS AND PROVIDERS. PT'S REPORTS PT HAS BEEN "OUT OF IT" AND THERAPY IS YET TO ACTUALLY START WORKING WITH PT PT WAS NOT ABLE TO DO ANYTHING THIS MORNING. PT'S SPOUSE WANTS TO SEE HOW PT DOES WITH THERAPY BEFORE MAKING FURTHER DECISIONS REGARDING REHAB. CM TO FOLLOW AND ASSIST NEEDED. Modesto Monk CASE MANAGEMENT DCP- Discharge Planning Updated by [id number]: Modesto Monk on 02/19/19 2:[address] Patient Name: MODESTO SPEAR Admission Status: ER Accout number: [id number] Admission Date: 02-18-2019 : 1935 Admission Diagnosis: Attending: ALBERTO OROZCO Current LOS: 1 Anticipated DC Date: Planned Disposition: Home Primary Insurance: MEDICARE A & B Discharge Planning Comments: CM RECEIVED ORDER FOR REHAB OR HOME HEALTH. CM MET WITH PT IN ROOM TO DISCUSS DISCHARGE PLANNING AND NEEDS. PT REPORTS LIVING AT HOME INDEPENDENTLY WITH HIS . PT HAS GLUCOMETER AND GETS SUPPLIES FROM [employer]; PT HAS NO MEDICAL EQUIPMENT PROVIDER PREFERENCE AND NO OUTSIDE SERVICES ASSISTING IN THE HOME. CM DISCUSSED AVAILABILITY OF HOME HEALTH, REHAB SERVICES AND MEDICAL EQUIPMENT. PT DENIES DISCHARGE NEEDS, AND THINKS HE WILL BE GOING HOME AT DISCHARGE. PT REPORTS HIS WILL PICK HIM UP FOR DISCHARGE HOME. IMPORTANT MESSAGE FROM MEDICARE PROVIDED AND EXPLAINED. CM SPOKE TO BEDSIDE NURSE AND OBTAINED ORDER FOR PHYSICAL THERAPY EVALUATION. PT STATES PLAN TO GO HOME AND DENIES CURRENT DISCHARGE NEEDS, BUT PLANS TO SPEAK TO HIS TODAYREGARDING DISCHARGE NEEDS. CM WAITING PT TO DISCUSS DISCHARGE PLAN WITH AND INFORM GROUNDSKEEPER PORTER. CM LEFT CM CONTACT INFORMATION WITH PT IN ROOM. Homogenizer Operator: Modesto Monk DCPIA - Discharge Planning Initial Assessment Updated by [id number]: Modesto Monk on 02/19/19 3:13 pm * Is the patient Alert and Oriented? Yes * How many steps to enter\\exit or inside your home? 3-O / 3-I * PCP DR. KNOWLES * [facility] * Preadmission Environment Home with Family * ADLs Independent * Equipment Glucometer * Other Equipment NO MEDICAL EQUIPMENT PROVIDER PREFERENCE * List name and contact numbers for known caregivers / representatives who currently or will assist patient after discharge: STEFANIE SPEAR, SPOUSE, * Verbal permission to speak to the caregivers and representatives has been obtained from the patient. N/A * Community resources currently utilized None * Please name any agencies selected above. NONE * Additional services required to return to the preadmission environment? No * Can the patient safely return to the preadmission environment? Yes * Has this patient been hospitalized within the prior 30 days at any hospital? No Coverage Notice Reviewer: [id number] Nancy Monk Notice Issued Date-Time: 02/19/2019 15:00 Notice Type: IM Discharge Notice Notice Delivered To: Patient Relationship to Patient: Hand Crocheter Name: Delivery Method: HAND - Hand Delivered Lynn Days: Prior Verbal Notification: Recipient Understood Notice: Yes Recipient Signature: Yes Med Rec Note Co-signed by Attending: Coverage Notice Comment: Reviewer: [id number] Monk Notice Issued Date-Time: 02/22/2019 8:40 Notice Type: Patient Choice Letter Notice Delivered To: Family Member Relationship to Patient: Spouse Hand Crocheter Name: STEFANIE SPEAR Delivery Method: HAND - Hand Delivered Lynn Days: Prior Verbal Notification: Recipient Understood Notice: Yes Recipient Signature: Yes Med Rec Note Co-signed by Attending: Coverage Notice Comment: Reviewer: [id number] - Modesto Monk Notice Issued Date-Time: 02/22/2019 8:40 Notice Type: IM Discharge Notice Notice Delivered To: Family Member Relationship to Patient: Spouse Hand Crocheter Name: STEFANIE SPEAR Delivery Method: HAND - Hand Delivered Lynn Days: Prior Verbal Notification: Recipient Understood Notice: Yes Recipient Signature: Yes Med Rec Note Co-signed by Attending: Coverage Notice Comment: Last DP export: 02/22/19 2:59 pm Patient Name: MODESTO SPEAR Page 45540 at 1608 All edits/amendments must be made on the electronic document DICTATION DATE: 02/22/191607 FLEXO PRESS OPERATOR: ENRIQUE 02/22/191607 RPT#: [id number] DC DATE: STATUS: ADM IN [facility] [address] [place] [address] END OF REPORT
[2019-02-22 16:30] VITALS: BP 132/87
--- NOTE | 2019-02-22 17:53 | NUR ---
I have reviewed this patient and I concur with the Shift Assessment completed by the Licensed Practical Nurse today this shift.
--- NOTE | 2019-02-22 19:24 | NUR ---
RECEIVED PT. PT ASSISTED INTO WC BY FAMILY TO GO VISIT ON ANOTHER UNIT. NO VOICED CONCERNS AT THIS TIME.
[2019-02-22 20:00] VITALS: BP 134/85
[2019-02-23] VITALS: BP 136/95
[2019-02-23 04:00] VITALS: BP 134/85
--- NOTE | 2019-02-23 08:10 | NUR ---
ROUNDING DONE WITH MALE FAMILY MEMBER AT BEDSIDE. ON HEART MONITOR SHOWING CAF, HR 97. ON ROOM AIR. RIGHT HAND PIV SEEN WITH NS INFUSING AT 30 CC/HR. DENIES NEEDS AT THIS TIME. WILL CPOC.
--- NOTE | 2019-02-23 08:20 | MORECARE ---
CASE MANAGEMENT DISCHARGE SUMMARY PATIENT: MODESTO SPEAR JR UNIT: [id number] ADM DATE: 02/18/19 AGE: 83 : [birth year] SEX: M ROOM/BED: D.2134 AUTHOR: LETICIADOC PHYSICIAN: REFERRING PHYSICIAN: ALBERTO OROZCO MD DATE OF SERVICE: 02/23/19 Discharge Plan Patient Name: MODESTO SPEAR Facility: [facility]:[place] : 1935 Planned Disposition: [facility] Facility Anticipated Discharge Date: 02/23/19 Discharge Date: Expected LOS: 5 Initial Reviewer: [id number] Initial Review Date: 02/19/2019 Generated: 02/23/19 9:19 am Comments DCP- Discharge Planning Updated by [id number]: Modesto Monk on 02/22/19 3:[address] Patient Name: MODESTO SPEAR Encounter No: [id number] : 1935 Primary Insurance: MEDICARE A & B Anticipated DC Date: 02-23-2019 Planned Disposition: [facility] Facility External Planned Provider: [facility], MEDICARE REHAB BED DCP follow-up note: CM RECEIVED CALL FROM RADHA OF [facility], , WHO ADVISED THEY WILL ACCEPT PT FOR REHAB AND WANT TO PACKAGE DELIVERY DRIVER FIRST THING TOMORROW MORNING. PT HAS 3O SKILLED DAYS FOR REHAB SERVICES. PT NOTIFIED PT IN ROOM. CM NOTIFIED PT'S SPOUSE IN ROOM 2055. PT'S SPOUSE PROVIDED NUMBER FOR DENA ESCALONA, HER SON, WHO CAN ASSIST [facility] WITH PAPERWORK IF NEEDED; [phone]. CM NOTIFIED NURSE BRAYAN OF DR. KNOWLES'S OFFICE. FOR DISCHARGE TOMORROW MORNING, 02-23-19, FAX DISCHARGE INFORMATION TO [facility], . NURSE REPORT TO BE CALLED TO [facility] AT [phone]. [facility] TO ARRANGE VAN TRANSPORTATION FOR PACKAGE DELIVERY DRIVER TOMORROW MORNING. Modesto Monk, CASE MANAGEMENT DCP- Discharge Planning Updated by [id number]: Modesto Monk on 02/22/19 8:[address] Patient Name: MODESTO SPEAR Encounter No: [id number] : 1935 Primary Insurance: MEDICARE A & B Anticipated DC Date: 02-22-2019 Planned Disposition: [facility] Facility External Planned Provider: [facility], MEDICARE REHAB BED DCP follow-up note: CM REVIEWED CHART, DOCTOR NOTES THAT PT WILL GO TO [facility] FOR REHAB IF BED IS AVAILABLE. CM MET WITH PT AND SPOUSE IN ROOM, DISCUSSED REHAB OPTIONS, LOCATIONS AND PROVIDERS, GAVE LISTING OF SNF FACILITIES. PT'S SPOUSE REPORTS THEY WANT PT AT [facility] IT IS ONLY [address] FROM HER HOUSE. CHOICE SIGNED FOR [facility]. IMPORTANT MESSAGE FROM MEDICARE PROVIDED AND EXPLAINED. CM CALLED [facility], , SPOKE TO RADHA WHO WILL SCREEN FOR REHAB ADMISSION. PT INFORMED RADHA THAT PT IS READY TO DISCHARGE TO REHAB. CM FAXED REHAB REFERRAL TO [facility] AT [phone]. CM WIATING ADMISSION DETERMINATION FROM [facility] AND [facility]. Modesto Monk CASE MANAGEMENT DCP- Discharge Planning Updated by [id number]: Modesto Monk on 02/20/19 3:[address] Patient Name: MODESTO SPEAR Encounter No: [id number] : 1935 Primary Insurance: MEDICARE A & B Anticipated DC Date: Planned Disposition: Home DCP follow-up note: CM MET WITH PT AND SPOUSE IN ROOM TO DISCUSS DISCHARGE PLANNING AND NEEDS. CM DISCUSSED REHAB SERVICES, LOCATIONS AND PROVIDERS. PT'S REPORTS PT HAS BEEN "OUT OF IT" AND THERAPY IS YET TO ACTUALLY START WORKING WITH PT PT WAS NOT ABLE TO DO ANYTHING THIS MORNING. PT'S SPOUSE WANTS TO SEE HOW PT DOES WITH THERAPY BEFORE MAKING FURTHER DECISIONS REGARDING REHAB. CM TO FOLLOW AND ASSIST NEEDED. Modesto Monk CASE MANAGEMENT DCP- Discharge Planning Updated by [id number]: Modesto Monk on 02/19/19 2:[address] Patient Name: MODESTO SPEAR Admission Status: ER Accout number: [id number] Admission Date: 02-18-2019 : 1935 Admission Diagnosis: Attending: ALBERTO OROZCO Current LOS: 1 Anticipated DC Date: Planned Disposition: Home Primary Insurance: MEDICARE A & B Discharge Planning Comments: CM RECEIVED ORDER FOR REHAB OR HOME HEALTH. CM MET WITH PT IN ROOM TO DISCUSS DISCHARGE PLANNING AND NEEDS. PT REPORTS LIVING AT HOME INDEPENDENTLY WITH HIS . PT HAS GLUCOMETER AND GETS SUPPLIES FROM [employer]; PT HAS NO MEDICAL EQUIPMENT PROVIDER PREFERENCE AND NO OUTSIDE SERVICES ASSISTING IN THE HOME. CM DISCUSSED AVAILABILITY OF HOME HEALTH, REHAB SERVICES AND MEDICAL EQUIPMENT. PT DENIES DISCHARGE NEEDS, AND THINKS HE WILL BE GOING HOME AT DISCHARGE. PT REPORTS HIS WILL PICK HIM UP FOR DISCHARGE HOME. IMPORTANT MESSAGE FROM MEDICARE PROVIDED AND EXPLAINED. CM SPOKE TO BEDSIDE NURSE AND OBTAINED ORDER FOR PHYSICAL THERAPY EVALUATION. PT STATES PLAN TO GO HOME AND DENIES CURRENT DISCHARGE NEEDS, BUT PLANS TO SPEAK TO HIS TODAYREGARDING DISCHARGE NEEDS. CM WAITING PT TO DISCUSS DISCHARGE PLAN WITH AND INFORM RUBBER FLAP CUTTER. CM LEFT CM CONTACT INFORMATION WITH PT IN ROOM. Parks Recreation Director: Modesto Monk DCPIA - Discharge Planning Initial Assessment Updated by [id number]: Modesto Monk on 02/19/19 3:13 pm * Is the patient Alert and Oriented? Yes * How many steps to enter\\exit or inside your home? 3-O / 3-I * PCP DR. KNOWLES * [facility] * Preadmission Environment Home with Family * ADLs Independent * Equipment Glucometer * Other Equipment NO MEDICAL EQUIPMENT PROVIDER PREFERENCE * List name and contact numbers for known caregivers / representatives who currently or will assist patient after discharge: STEFANIE SPEAR, SPOUSE, * Verbal permission to speak to the caregivers and representatives has been obtained from the patient. N/A * Community resources currently utilized None * Please name any agencies selected above. NONE * Additional services required to return to the preadmission environment? No * Can the patient safely return to the preadmission environment? Yes * Has this patient been hospitalized within the prior 30 days at any hospital? No Coverage Notice Reviewer: [id number] Nancy Monk Notice Issued Date-Time: 02/19/2019 15:00 Notice Type: IM Discharge Notice Notice Delivered To: Patient Relationship to Patient: Global Regulatory Affairs Manager Name: Delivery Method: HAND - Hand Delivered Lynn Days: Prior Verbal Notification: Recipient Understood Notice: Yes Recipient Signature: Yes Med Rec Note Co-signed by Attending: Coverage Notice Comment: Reviewer: [id number] Monk Notice Issued Date-Time: 02/22/2019 8:40 Notice Type: Patient Choice Letter Notice Delivered To: Family Member Relationship to Patient: Spouse Global Regulatory Affairs Manager Name: STEFANIE SPEAR Delivery Method: HAND - Hand Delivered Lynn Days: Prior Verbal Notification: Recipient Understood Notice: Yes Recipient Signature: Yes Med Rec Note Co-signed by Attending: Coverage Notice Comment: Reviewer: [id number] - Modesto Monk Notice Issued Date-Time: 02/22/2019 8:40 Notice Type: IM Discharge Notice Notice Delivered To: Family Member Relationship to Patient: Spouse Global Regulatory Affairs Manager Name: STEFANIE SPEAR Delivery Method: HAND - Hand Delivered Lynn Days: Prior Verbal Notification: Recipient Understood Notice: Yes Recipient Signature: Yes Med Rec Note Co-signed by Attending: Coverage Notice Comment: Last DP export: 02/22/19 3:08 pm Patient Name: MODESTO SPEAR Page 38156 at 0820 All edits/amendments must be made on the electronic document DICTATION DATE: 02/23/19818 OIL PRODUCER: ENRIQUE 02/23/19818 RPT#: [id number] DC DATE: STATUS: ADM IN [facility] [address] [place] [address] END OF REPORT
--- NOTE | 2019-02-23 08:37 | NUR ---
UP WITH THERAPY AMBULATING AROUND NURSE STATION. TO CHAIR. FAMILY AT BEDSIDE.
[2019-02-23 09:50] VITALS: BP 126/83
[2019-02-23 12:30] VITALS: BP 127/76
--- NOTE | 2019-02-23 13:09 | MORECARE ---
CASE MANAGEMENT DISCHARGE SUMMARY PATIENT: MODESTO SPEAR JR UNIT: [id number] ADM DATE: 02/18/19 AGE: 83 : 33 SEX: M ROOM/BED: D.2134 AUTHOR: TEOFILO KELLY PHYSICIAN: REFERRING PHYSICIAN: ALBERTO OROZCO MD DATE OF SERVICE: 02/23/19 Discharge Plan Patient Name: MODESTO SPEAR Facility: [facility]:[place] : 1935 Planned Disposition: Penitentiary Facility Anticipated Discharge Date: 02/23/19 Discharge Date: Expected LOS: 5 Initial Reviewer: [id number] Initial Review Date: 02/19/2019 Generated: 02/23/19 2:09 pm Comments DCP- Discharge Planning Updated by [id number]: Modesto Monk on 02/23/19 12:[address] Patient Name: MODESTO SPEAR Encounter No: [id number] : 1935 Primary Insurance: MEDICARE A & B Anticipated DC Date: 02-23-2019 Planned Disposition: Penitentiary Facility External Planned Provider: [facility], MEDICARE REHAB BED DCP follow-up note: CM RECEIVED DISCHARGE ORDER.. CM FAXED DISCHARGE INFORMATION TO [facility], . NURSE REPORT TO BE CALLED TO [facility] AT [phone]. [facility] TO ARRANGE VAN TRANSPORTATION FOR LAWN CARE WORKER. Modesto Monk, CASE MANAGEMENT DCP- Discharge Planning Updated by [email or web address]: Modesto Monk on 02/22/19 3:[address] Patient Name: MODESTO SPEAR Encounter No: [id number] : 1935 Primary Insurance: MEDICARE A & B Anticipated DC Date: 02-23-2019 Planned Disposition: Penitentiary Facility External Planned Provider: [facility], MEDICARE REHAB BED DCP follow-up note: CM RECEIVED CALL FROM RADHA OF [facility], , WHO ADVISED THEY WILL ACCEPT PT FOR REHAB AND WANT TO LAWN CARE WORKER FIRST THING TOMORROW MORNING. PT HAS 3O SKILLED DAYS FOR REHAB SERVICES. PT NOTIFIED PT IN ROOM. CM NOTIFIED PT'S SPOUSE IN ROOM 8801. PT'S SPOUSE PROVIDED NUMBER FOR DENA ESCALONA, HER SON, WHO CAN ASSIST [facility] WITH PAPERWORK IF NEEDED; [phone]. CM NOTIFIED NURSE BRAYAN OF DR. KNOWLES'S OFFICE. FOR DISCHARGE TOMORROW MORNING, 02-23-19, FAX DISCHARGE INFORMATION TO [facility], . NURSE REPORT TO BE CALLED TO [facility] AT [phone]. [facility] TO ARRANGE VAN TRANSPORTATION FOR LAWN CARE WORKER TOMORROW MORNING. DELORES Espitia DCP- Discharge Planning Updated by [email or web address]: Modesto Monk on 02/22/19 8:[address] Patient Name: MODESTO SPEAR Encounter No: [id number] : 1935 Primary Insurance: MEDICARE A & B Anticipated DC Date: 02-22-2019 Planned Disposition: Penitentiary Facility External Planned Provider: [facility], MEDICARE REHAB BED DCP follow-up note: CM REVIEWED CHART, DOCTOR NOTES THAT PT WILL GO TO [facility] FOR REHAB IF BED IS AVAILABLE. CM MET WITH PT AND SPOUSE IN ROOM, DISCUSSED REHAB OPTIONS, LOCATIONS AND PROVIDERS, GAVE LISTING OF LONG-TERM FACILITIES. PT'S SPOUSE REPORTS THEY WANT PT AT [facility] IT IS ONLY 3 MILES FROM HER HOUSE. CHOICE SIGNED FOR [facility]. IMPORTANT MESSAGE FROM MEDICARE PROVIDED AND EXPLAINED. CM CALLED [facility], , SPOKE TO RADHA WHO WILL SCREEN FOR REHAB ADMISSION. PT INFORMED RADHA THAT PT IS READY TO DISCHARGE TO REHAB. CM FAXED REHAB REFERRAL TO [facility] AT [phone]. CM WIATING ADMISSION DETERMINATION FROM [facility]. DELORES Espitia DCP- Discharge Planning Updated by [id number]: Modesto Monk on 02/20/19 3:[address] Patient Name: MODESTO SPEAR Encounter No: [id number] : 1935 Primary Insurance: MEDICARE A & B Anticipated DC Date: Planned Disposition: Home DCP follow-up note: CM MET WITH PT AND SPOUSE IN ROOM TO DISCUSS DISCHARGE PLANNING AND NEEDS. CM DISCUSSED REHAB SERVICES, LOCATIONS AND PROVIDERS. PT'S REPORTS PT HAS BEEN "OUT OF IT" AND THERAPY IS YET TO ACTUALLY START WORKING WITH PT PT WAS NOT ABLE TO DO ANYTHING THIS MORNING. PT'S SPOUSE WANTS TO SEE HOW PT DOES WITH THERAPY BEFORE MAKING FURTHER DECISIONS REGARDING REHAB. CM TO FOLLOW AND ASSIST NEEDED. Modesto Monk, CASE MANAGEMENT DCP- Discharge Planning Updated by [id number]: Modesto Monk on 02/19/19 2:[address] Patient Name: MODESTO SPEAR Admission Status: ER Accout number: [id number] Admission Date: 02-18-2019 : 1935 Admission Diagnosis: Attending: ALBERTO OROZCO Current LOS: 1 Anticipated DC Date: Planned Disposition: Home Primary Insurance: MEDICARE A & B Discharge Planning Comments: CM RECEIVED ORDER FOR REHAB OR HOME HEALTH. CM MET WITH PT IN ROOM TO DISCUSS DISCHARGE PLANNING AND NEEDS. PT REPORTS LIVING AT HOME INDEPENDENTLY WITH HIS . PT HAS GLUCOMETER AND GETS SUPPLIES FROM [employer]; PT HAS NO MEDICAL EQUIPMENT PROVIDER PREFERENCE AND NO OUTSIDE SERVICES ASSISTING IN THE HOME. CM DISCUSSED AVAILABILITY OF HOME HEALTH, REHAB SERVICES AND MEDICAL EQUIPMENT. PT DENIES DISCHARGE NEEDS, AND THINKS HE WILL BE GOING HOME AT DISCHARGE. PT REPORTS HIS WILL PICK HIM UP FOR DISCHARGE HOME. IMPORTANT MESSAGE FROM MEDICARE PROVIDED AND EXPLAINED. CM SPOKE TO BEDSIDE NURSE AND OBTAINED ORDER FOR PHYSICAL THERAPY EVALUATION. PT STATES PLAN TO GO HOME AND DENIES CURRENT DISCHARGE NEEDS, BUT PLANS TO SPEAK TO HIS TODAYREGARDING DISCHARGE NEEDS. CM WAITING PT TO DISCUSS DISCHARGE PLAN WITH AND INFORM GOLD TOOLER. CM LEFT CM CONTACT INFORMATION WITH PT IN ROOM. Administrative Representative: Modesto Monk DCPIA - Discharge Planning Initial Assessment Updated by [id number]: Modesto Monk on 02/19/19 3:13 pm * Is the patient Alert and Oriented? Yes * How many steps to enter\\exit or inside your home? 3-O / 3-I * PCP DR. KNOWLES * [facility] * Preadmission Environment Home with Family * ADLs Independent * Equipment Glucometer * Other Equipment NO MEDICAL EQUIPMENT PROVIDER PREFERENCE * List name and contact numbers for known caregivers / representatives who currently or will assist patient after discharge: STEFANIE SPEAR, SPOUSE, * Verbal permission to speak to the caregivers and representatives has been obtained from the patient. N/A * Community resources currently utilized None * Please name any agencies selected above. NONE * Additional services required to return to the preadmission environment? No * Can the patient safely return to the preadmission environment? Yes * Has this patient been hospitalized within the prior 30 days at any hospital? No Coverage Notice Reviewer: ANAID Monk Notice Issued Date-Time: 02/19/2019 15:00 Notice Type: IM Discharge Notice Notice Delivered To: Patient Relationship to Patient: Architectural Engineer Name: Delivery Method: HAND - Hand Delivered Lynn Days: Prior Verbal Notification: Recipient Understood Notice: Yes Recipient Signature: Yes Med Rec Note Co-signed by Attending: Coverage Notice Comment: Reviewer: ANAID Monk Notice Issued Date-Time: 02/22/2019 8:40 Notice Type: Patient Choice Letter Notice Delivered To: Family Member Relationship to Patient: Spouse Architectural Engineer Name: STEFANIE SPEAR Delivery Method: HAND - Hand Delivered Lynn Days: Prior Verbal Notification: Recipient Understood Notice: Yes Recipient Signature: Yes Med Rec Note Co-signed by Attending: Coverage Notice Comment: Reviewer: ANAID Monk Notice Issued Date-Time: 02/22/2019 8:40 Notice Type: IM Discharge Notice Notice Delivered To: Family Member Relationship to Patient: Spouse Architectural Engineer Name: STEFANIE SPEAR Delivery Method: HAND - Hand Delivered Lynn Days: Prior Verbal Notification: Recipient Understood Notice: Yes Recipient Signature: Yes Med Rec Note Co-signed by Attending: Coverage Notice Comment: Last DP export: 02/23/19 7:20 am Patient Name: MODESTO SPEAR Page [id number] at 1309 All edits/amendments must be made on the electronic document DICTATION DATE: 02/23/19 1308 DIESEL PILE DRIVER OPERATOR: ENRIQUE 02/23/19 1308 RPT#: [id number] DC DATE: STATUS: ADM IN [facility] [address] [place] [address] END OF REPORT
--- NOTE | 2019-02-23 13:51 | NUR ---
CALLED REPORT TO SHARI GARCIA AT [facility]. HEART MONITOR TURNED IN. AWAITING RIDE FOR DISCHARGE AND THEN WILL TAKE SALINE LOCK OUT AT THAT TIME.
--- NOTE | 2019-02-23 14:24 | NUR ---
VERBAL AND WRITTEN DISCHARGE INSTRUCTIONS GIVEN TO PATIENT AND FAMILY MEMBER.
--- NOTE | 2019-02-23 14:38 | NUR ---
SALINE LOCK REMOVED WITH CATH TIP INTACT. DISCHARGED TO [facility] VIA THEIR WHEELCHAIR.
--- NOTE | 2019-02-23 15:28 | NUR ---
OT NOTE: PT COMPLETED ADL MOB WITH CGA. PT COMPLETED EOB SITTING BALANCE WITH SPV. PT COMPLETED TOILETING AND HYGIENE TASKS WITH YASMINE Charles. THANK YOU, [facility]
--- NOTE | 2019-02-23 17:05 | MORECARE ---
CASE MANAGEMENT DISCHARGE SUMMARY PATIENT: MODESTO SPEAR JR UNIT: [id number] ADM DATE: 02/18/19 AGE: 83 : 33 SEX: M ROOM/BED: D.2134 AUTHOR: TEOFILO KELLY PHYSICIAN: REFERRING PHYSICIAN: ALBERTO OROZCO MD DATE OF SERVICE: 02/23/19 Discharge Plan Patient Name: MODESTO SPEAR Facility: [facility]:[place] : 1935 Planned Disposition: Group Home Facility Anticipated Discharge Date: 02/23/19 Discharge Date: 02/23/2019 Expected LOS: 5 Initial Reviewer: [id number] Initial Review Date: 02/19/2019 Generated: 02/23/19 6:05 pm Comments DCP- Discharge Planning Updated by [id number]: Modesto Monk on 02/23/19 12:[address] Patient Name: MODESTO SPEAR Encounter No: [id number] : 1935 Primary Insurance: MEDICARE A & B Anticipated DC Date: 02-23-2019 Planned Disposition: Group Home Facility External Planned Provider: [facility], MEDICARE REHAB BED DCP follow-up note: CM RECEIVED DISCHARGE ORDER.. CM FAXED DISCHARGE INFORMATION TO [facility], . NURSE REPORT TO BE CALLED TO [facility] AT [phone]. [facility] TO ARRANGE VAN TRANSPORTATION FOR BULK CLERK. Modesto Monk CASE MANAGEMENT DCP- Discharge Planning Updated by [id number]: Modesto Monk on 02/22/19 3:[address] Patient Name: MODESTO SPEAR Encounter No: [id number] : 1935 Primary Insurance: MEDICARE A & B Anticipated DC Date: 02-23-2019 Planned Disposition: Group Home Facility External Planned Provider: [facility], MEDICARE REHAB BED DCP follow-up note: CM RECEIVED CALL FROM RADHA OF [facility], , WHO ADVISED THEY WILL ACCEPT PT FOR REHAB AND WANT TO BULK CLERK FIRST THING TOMORROW MORNING. PT HAS 3O SKILLED DAYS FOR REHAB SERVICES. PT NOTIFIED PT IN ROOM. CM NOTIFIED PT'S SPOUSE IN ROOM 8155. PT'S SPOUSE PROVIDED NUMBER FOR DENA ESCALONA, HER SON, WHO CAN ASSIST [facility] WITH PAPERWORK IF NEEDED; [phone]. CM NOTIFIED NURSE BRAYAN OF DR. KNOWLES'S OFFICE. FOR DISCHARGE TOMORROW MORNING, 02-23-19, FAX DISCHARGE INFORMATION TO [facility], . NURSE REPORT TO BE CALLED TO [facility] AT [phone]. [facility] TO ARRANGE VAN TRANSPORTATION FOR BULK CLERK TOMORROW MORNING. DELORES Espitia MANAGEMENT DCP- Discharge Planning Updated by [id number]: Modesto Monk on 02/22/19 8:[address] Patient Name: MODESTO SPEAR Encounter No: [id number] : 1935 Primary Insurance: MEDICARE A & B Anticipated DC Date: 02-22-2019 Planned Disposition: Group Home Facility External Planned Provider: [facility], MEDICARE REHAB BED DCP follow-up note: CM REVIEWED CHART, DOCTOR NOTES THAT PT WILL GO TO [facility] FOR REHAB IF BED IS AVAILABLE. CM MET WITH PT AND SPOUSE IN ROOM, DISCUSSED REHAB OPTIONS, LOCATIONS AND PROVIDERS, GAVE LISTING OF SNF FACILITIES. PT'S SPOUSE REPORTS THEY WANT PT AT [facility] IT IS ONLY [address] FROM HER HOUSE. CHOICE SIGNED FOR [facility]. IMPORTANT MESSAGE FROM MEDICARE PROVIDED AND EXPLAINED. CM CALLED [facility], , SPOKE TO RADHA WHO WILL SCREEN FOR REHAB ADMISSION. PT INFORMED RADHA THAT PT IS READY TO DISCHARGE TO REHAB. CM FAXED REHAB REFERRAL TO [facility] AT [phone]. CM WIATING ADMISSION DETERMINATION FROM [facility]. DELORES Espitia DCP- Discharge Planning Updated by [id number]: Modesto Monk on 02/20/19 3:[address] Patient Name: MODESTO SPEAR Encounter No: [id number] : 1935 Primary Insurance: MEDICARE A & B Anticipated DC Date: Planned Disposition: Home DCP follow-up note: CM MET WITH PT AND SPOUSE IN ROOM TO DISCUSS DISCHARGE PLANNING AND NEEDS. CM DISCUSSED REHAB SERVICES, LOCATIONS AND PROVIDERS. PT'S REPORTS PT HAS BEEN "OUT OF IT" AND THERAPY IS YET TO ACTUALLY START WORKING WITH PT PT WAS NOT ABLE TO DO ANYTHING THIS MORNING. PT'S SPOUSE WANTS TO SEE HOW PT DOES WITH THERAPY BEFORE MAKING FURTHER DECISIONS REGARDING REHAB. CM TO FOLLOW AND ASSIST NEEDED. Modesto Monk, CASE MANAGEMENT DCP- Discharge Planning Updated by [id number]: Modesto Monk on 02/19/19 2:[address] Patient Name: MODESTO SPEAR Admission Status: ER Accout number: [id number] Admission Date: 02-18-2019 : 1935 Admission Diagnosis: Attending: ALBERTO OROZCO Current LOS: 1 Anticipated DC Date: Planned Disposition: Home Primary Insurance: MEDICARE A & B Discharge Planning Comments: CM RECEIVED ORDER FOR REHAB OR HOME HEALTH. CM MET WITH PT IN ROOM TO DISCUSS DISCHARGE PLANNING AND NEEDS. PT REPORTS LIVING AT HOME INDEPENDENTLY WITH HIS . PT HAS GLUCOMETER AND GETS SUPPLIES FROM [employer]; PT HAS NO MEDICAL EQUIPMENT PROVIDER PREFERENCE AND NO OUTSIDE SERVICES ASSISTING IN THE HOME. CM DISCUSSED AVAILABILITY OF HOME HEALTH, REHAB SERVICES AND MEDICAL EQUIPMENT. PT DENIES DISCHARGE NEEDS, AND THINKS HE WILL BE GOING HOME AT DISCHARGE. PT REPORTS HIS WILL PICK HIM UP FOR DISCHARGE HOME. IMPORTANT MESSAGE FROM MEDICARE PROVIDED AND EXPLAINED. CM SPOKE TO BEDSIDE NURSE AND OBTAINED ORDER FOR PHYSICAL THERAPY EVALUATION. PT STATES PLAN TO GO HOME AND DENIES CURRENT DISCHARGE NEEDS, BUT PLANS TO SPEAK TO HIS TODAYREGARDING DISCHARGE NEEDS. CM WAITING PT TO DISCUSS DISCHARGE PLAN WITH AND INFORM CARDIOVASCULAR OR NURSE. CM LEFT CM CONTACT INFORMATION WITH PT IN ROOM. Heater Operator: Modesto Monk DCPIA - Discharge Planning Initial Assessment Updated by [id number]: Modesto Monk on 02/19/19 3:13 pm * Is the patient Alert and Oriented? Yes * How many steps to enter\\exit or inside your home? 3-O / 3-I * PCP DR. KNOWLES * [facility] * Preadmission Environment Home with Family * ADLs Independent * Equipment Glucometer * Other Equipment NO MEDICAL EQUIPMENT PROVIDER PREFERENCE * List name and contact numbers for known caregivers / representatives who currently or will assist patient after discharge: STEFANIE SPEAR, SPOUSE, * Verbal permission to speak to the caregivers and representatives has been obtained from the patient. N/A * Community resources currently utilized None * Please name any agencies selected above. NONE * Additional services required to return to the preadmission environment? No * Can the patient safely return to the preadmission environment? Yes * Has this patient been hospitalized within the prior 30 days at any hospital? No Coverage Notice Reviewer: ANAID Monk Notice Issued Date-Time: 02/19/2019 15:00 Notice Type: IM Discharge Notice Notice Delivered To: Patient Relationship to Patient: Inspector Sheet Metal Parts Name: Delivery Method: HAND - Hand Delivered Lynn Days: Prior Verbal Notification: Recipient Understood Notice: Yes Recipient Signature: Yes Med Rec Note Co-signed by Attending: Coverage Notice Comment: Reviewer: ANAID Monk Notice Issued Date-Time: 02/22/2019 8:40 Notice Type: Patient Choice Letter Notice Delivered To: Family Member Relationship to Patient: Spouse Inspector Sheet Metal Parts Name: STEFANIE SPEAR Delivery Method: HAND - Hand Delivered Lynn Days: Prior Verbal Notification: Recipient Understood Notice: Yes Recipient Signature: Yes Med Rec Note Co-signed by Attending: Coverage Notice Comment: Reviewer: ANAID Monk Notice Issued Date-Time: 02/22/2019 8:40 Notice Type: IM Discharge Notice Notice Delivered To: Family Member Relationship to Patient: Spouse Inspector Sheet Metal Parts Name: STEFANIE SPEAR Delivery Method: HAND - Hand Delivered Lynn Days: Prior Verbal Notification: Recipient Understood Notice: Yes Recipient Signature: Yes Med Rec Note Co-signed by Attending: Coverage Notice Comment: Last DP export: 02/23/19 12:09 pm Patient Name: MODESTO SPEAR Page [id number] at 1705 All edits/amendments must be made on the electronic document DICTATION DATE: 02/23/191704 SENIOR QUALITATIVE RESEARCHER: ENRIQUE 02/23/191704 RPT#: [id number] DC DATE:02/23/19 STATUS: DIS IN [facility] [address] [place] [address] END OF REPORT
== END 2019-02-23 14:41 | DRG 682 ==
LOC: D.ER 12:52 → D.M2 16:44
PROVIDERS: Family Medicine; ADMIT Family Medicine; ATTEND Family Medicine
DX: N17.9 Acute kidney failure, unspecified (principal); I50.23 Acute on chronic systolic (congestive) heart failure; R64 Cachexia; F05 Delirium due to known physiological condition; E87.5 Hyperkalemia; I25.5 Ischemic cardiomyopathy; Z68.24 Body mass index [BMI] 24.0-24.9, adult; I11.0 Hypertensive heart disease with heart failure; E78.5 Hyperlipidemia, unspecified; I48.0 Paroxysmal atrial fibrillation; I25.10 Atherosclerotic heart disease of native coronary artery without angina pectoris; K21.9 Gastro-esophageal reflux disease without esophagitis; E11.40 Type 2 diabetes mellitus with diabetic neuropathy, unspecified; E03.9 Hypothyroidism, unspecified; E86.0 Dehydration